=== PATIENT | female | born 1970 | race Caucasian/White ===

== ENCOUNTER 2016-07-18 23:09 | Emergency (ER) | payer SELFPAY ==
[~2016-07-18 23:09] MED LIST: ALLEGRA180 MG OR; AMOXICILLIN500 M1 OR; AMOXICILLIN500 MG OR; AMOXICILLIN500 MG PO; ASTELIN NASA137 MCG; AUGMENTIN500 MG OR; BACTRIM DS1 TAB OR; BENADRYL 50MG C50 MG OR; CEPHALEXIN500 M1 PO; CETIRIZINE10 MG PO; DIFLUCAN150 MG PO; FLEXERIL OR; FLUCONAZOLE150 MG PO; LORTAB5 PO; MEDDOSEPAK OR; MEDDOSEPAK PO; NAPROSYN500 MG PO; OMEPRAZOLE40 MG OR; PENICILLN VK500 MG PO; PEPCID40 MG OR; PRILOSEC20 MG PO; PROTONIX40 M2 PO; PYRIDIUM200 MG OR; ROBITUSSIN AC10 ML OR; SUDAFED30 MG OR; TESSALON PER100 MG PO; ULTRAM50 M1 PO; VENTOLIN HFA IN; VISTARIL25 MG PO; ZITHROMAX250 MG PO; ZYRTEC ALLGY10 M1 OR; [UNRECOGNIZED DRUG - OTHER] TOP
== END 2016-07-19 | disposition left against medical advice (07) | DRG 951 ==
LOC: ED 23:09 → LWOBS 07-19
DX: Z91.19 Patient's noncompliance with other medical treatment and regimen (principal)

== ENCOUNTER 2017-05-18 23:35 | Emergency (ER) | payer SELFPAY ==
[~2017-05-18] VITALS: Ht 167.6 cm; Wt 125.0 kg
[2017-05-19 01:24] LABS: INFLUENZA A NONE DETECTED (NONE DETECT); INFLUENZA B NONE DETECTED (NONE DETECT)
[2017-05-19] MEDS ORDERED: CLEOCIN300 MG PO (01:31)
[2017-05-19] MEDS ORDERED: CLARITIN10 M1 PO (01:31)
[2017-05-19 02:06] VITALS: BP 126/83
== END 2017-05-19 02:00 | disposition home or self-care (01) | DRG 153 ==
LOC: ED 23:35
PROVIDERS: Emergency Medicine
DX: J02.9 Acute pharyngitis, unspecified (principal); I88.9 Nonspecific lymphadenitis, unspecified; R09.89 Other specified symptoms and signs involving the circulatory and respiratory systems

== ENCOUNTER 2017-05-22 14:49 | Emergency (ER) | payer SELFPAY ==
[~2017-05-22] VITALS: Ht 167.6 cm; Wt 125.0 kg
[~2017-05-22 14:49] MED LIST changes: +CLARITIN10 M1 PO; +CLEOCIN300 MG PO
[2017-05-22 15:48] LABS: HEMATOCRIT 42.9 % (37.0-47.0); HEMOGLOBIN 14.4 g/dl (12.0-16.0); IMMATURE GRANULOCYTES 0.2 % (0.0-1.0); MEAN CELL VOLUME 85.5 fL CALC (80.0-100.0); MEAN CORPUSCULAR HGB 28.7 pG CALC (26.0-32.0); MEAN CORPUSCULAR HGB CONC 33.6 g/L CALC (32.0-36.0); NEUT# 5.53 thou/uL (2.00-7.15); RED BLOOD COUNT 5.02 mill/uL (4.20-5.60); RED CELL DISTRI WIDTH 11.9 % (11.5-15.5)
[2017-05-22 16:01] LABS: ALBUMIN 4.4 g/dL (3.2-5.0); ALKALINE PHOSPHATASE 86 u/l (38-126); ANION GAP 16 (6-22 (CALC)); BILIRUBIN, TOTAL 0.6 mg/dL (0.0-1.4); BUN 15 mg/dL (7-17); BUN/CREATININE RATIO 19 (12-20 (CALC)); CARBON DIOXIDE 26 mmol/l (22-30); CHLORIDE 105 mmol/l (95-108); CREATININE 0.8 mg/dL (0.5-1.0); GFR > 60 ML/MIN (>=60 (CALC)); GFR FOR AFR.AMER. > 60 ML/MIN (>=60 (CALC)); POTASSIUM 3.9 mmol/l (3.5-5.1); SGOT/AST 17 u/l (14-36); SGPT/ALT 28 u/l (9-52); SODIUM 143 mmol/l (137-146); TOTAL PROTEIN 7.4 g/dL (6.3-8.2)
[2017-05-22 16:30] LABS: BARBITURATES NEGATIVE (NEGATIVE); COCAINE NEGATIVE (NEGATIVE); METHADONE NEGATIVE (NEGATIVE); OXCYCODONE NEGATIVE (NEGATIVE); TETRAHYDROCANNABIONOL NEGATIVE (NEGATIVE); TRICYLIC ANTIDEPRESSANTS NEGATIVE (NEGATIVE)
[2017-05-22] MEDS ORDERED: PROVENTIL HFA IN (16:43)
[2017-05-22 17:01] VITALS: BP 113/63
== END 2017-05-22 17:03 | disposition home or self-care (01) | DRG 204 ==
LOC: ED 14:49
PROVIDERS: Emergency Medicine
DX: R06.00 Dyspnea, unspecified (principal); R11.10 Vomiting, unspecified; R61 Generalized hyperhidrosis

== ENCOUNTER 2018-02-17 14:47 | Emergency (ER) | payer OTHER ==
[~2018-02-17] VITALS: Ht 167.6 cm; Wt 287.0 kg
[~2018-02-17 14:47] MED LIST changes: +PROVENTIL HFA IN
[2018-02-17] MEDS ORDERED: CETIRIZINE10 MG PO (15:22)
[2018-02-17] MEDS ORDERED: EQL IBUPROFEN200 MG PO (15:23)
[2018-02-17 17:13] VITALS: BP 118/66
== END 2018-02-17 17:18 | disposition home or self-care (01) | DRG 761 ==
LOC: ED 14:47
DX: N95.1 Menopausal and female climacteric states (principal); M54.9 Dorsalgia, unspecified; J45.909 Unspecified asthma, uncomplicated; R73.03 Prediabetes

== ENCOUNTER 2018-06-02 17:30 | Emergency (ER) | payer BC ==
[~2018-06-02] VITALS: Ht 167.6 cm; Wt 100.0 kg
[~2018-06-02 17:30] MED LIST changes: +EQL IBUPROFEN200 MG PO
[2018-06-02] MEDS ORDERED: PROAIR HFA108 MCG/AC IN (17:48)
[2018-06-02] MEDS ORDERED: DUONEB IN (18:55)
[2018-06-02] MEDS ORDERED: DIFLUCAN100 M1 PO (18:55)
[2018-06-02] MEDS ORDERED: TESSALON PERLE100 MG PO (18:55)
[2018-06-02] MEDS ORDERED: PREDNISONE20 MG PO (18:55)
[2018-06-02] MEDS ORDERED: KEFLEX500 M1 PO (18:55)
[2018-06-02 19:01] VITALS: BP 141/84
== END 2018-06-02 19:01 | disposition home or self-care (01) | DRG 866 ==
LOC: ED 17:30
DX: B34.9 Viral infection, unspecified (principal); R50.9 Fever, unspecified; R05 Cough; J02.9 Acute pharyngitis, unspecified

== ENCOUNTER 2018-06-05 10:07 | Emergency (ER) | payer BC ==
[~2018-06-05] VITALS: Ht 165.1 cm; Wt 130.0 kg
[~2018-06-05 10:07] MED LIST changes: +DIFLUCAN100 M1 PO; +DUONEB IN; +KEFLEX500 M1 PO; +PREDNISONE20 MG PO; +PROAIR HFA108 MCG/AC IN; +TESSALON PERLE100 MG PO
[2018-06-05 11:45] VITALS: BP 130/81
== END 2018-06-05 11:50 | disposition home or self-care (01) | DRG 153 ==
LOC: ED 10:07
DX: J02.9 Acute pharyngitis, unspecified (principal); R05 Cough; J45.909 Unspecified asthma, uncomplicated; R73.03 Prediabetes

== ENCOUNTER 2018-06-08 18:27 | Emergency (ER) | payer BC ==
[~2018-06-08] VITALS: Ht 165.1 cm; Wt 131.0 kg
[2018-06-08 20:17] LABS: HEMATOCRIT 44.4 % (37.0-47.0); HEMOGLOBIN 14.7 g/dl (12.0-16.0); IMMATURE GRANULOCYTES 0.2 % (0.0-5.0); MEAN CELL VOLUME 84.6 fL CALC (80.0-100.0); MEAN CORPUSCULAR HGB CONC 33.1 g/L CALC (32.0-36.0); NEUT# 1.92 thou/uL (2.00-7.15); RED BLOOD COUNT 5.25 mill/uL (4.20-5.60); RED CELL DISTRI WIDTH 12.2 % (11.5-15.5)
[2018-06-08 20:23] LABS: URINE BILIRUBIN - DIPSTICK NEGATIVE (NEGATIVE); URINE BLOOD DIPSTICK LARGE (NEGATIVE); URINE COLOR YELLOW; URINE GLUCOSE - DIPSTICK NEGATIVE (NEGATIVE); URINE KETONE 15 mg/dL (NEGATIVE); URINE LEUK ESTERASE TRACE (NEGATIVE); URINE NITRITE - DIPSTICK NEGATIVE (Negative); URINE PROTEIN - DIPSTICK NEGATIVE (NEG-TRACE); URINE SPECIFIC GRAVITY 1.025; URINE UROBILINOGEN - DIPSTICK 0.2 E.U./dL (0.2)
[2018-06-08 20:30] LABS: ALBUMIN 3.9 g/dL (3.2-5.0); ALKALINE PHOSPHATASE 76 u/l (38-126); ANION GAP 12 (6-22 (CALC)); BILIRUBIN, TOTAL 0.6 mg/dL (0.0-1.4); BUN 13 mg/dL (7-17); BUN/CREATININE RATIO 17 (12-20 (CALC)); CARBON DIOXIDE 26 mmol/l (22-30); CHLORIDE 104 mmol/l (95-108); CREATININE 0.8 mg/dL (0.5-1.0); GFR > 60 ML/MIN (>=60 (CALC)); GFR FOR AFR.AMER. > 60 ML/MIN (>=60 (CALC)); SGOT/AST 18 u/l (14-36); SODIUM 139 mmol/l (137-146); TOTAL PROTEIN 6.6 g/dL (6.3-8.2)
[2018-06-08 20:34] LABS: URINE RBC 25-50 RBC/hpf (0-5); URINE SQUAMOUS EPITHELIAL CELL FEW EPI/hpf (0-FEW)
[2018-06-08] MEDS ORDERED: PYRIDIUM200 MG PO (21:05)
[2018-06-08] MEDS ORDERED: BACTRIM DS1 TAB PO (21:11)
[2018-06-08 21:13] VITALS: BP 142/67
== END 2018-06-08 21:25 | disposition home or self-care (01) | DRG 690 ==
LOC: ED 18:27
PROVIDERS: Emergency Medicine
DX: N39.0 Urinary tract infection, site not specified (principal); R30.0 Dysuria; R19.7 Diarrhea, unspecified

== ENCOUNTER 2018-06-29 08:13 | Emergency (ER) | payer BC ==
[~2018-06-29] VITALS: Ht 165.1 cm; Wt 91.0 kg
[~2018-06-29 08:13] MED LIST changes: +BACTRIM DS1 TAB PO; +PYRIDIUM200 MG PO
[2018-06-29 09:57] LABS: HEMATOCRIT 43.7 % (37.0-47.0); HEMOGLOBIN 14.2 g/dl (12.0-16.0); IMMATURE GRANULOCYTES 0.6 % (0.0-5.0); MEAN CELL VOLUME 85.5 fL CALC (80.0-100.0); MEAN CORPUSCULAR HGB 27.8 pG CALC (26.0-32.0); MEAN CORPUSCULAR HGB CONC 32.5 g/L CALC (32.0-36.0); NEUT# 4.92 thou/uL (2.00-7.15); RED BLOOD COUNT 5.11 mill/uL (4.20-5.60); RED CELL DISTRI WIDTH 12.3 % (11.5-15.5)
[2018-06-29 10:03] LABS: ALBUMIN 4.6 g/dL (3.2-5.0); ALKALINE PHOSPHATASE 108 u/l (38-126); ANION GAP 16 (6-22 (CALC)); BILIRUBIN, TOTAL 1.1 mg/dL (0.0-1.4); BUN 11 mg/dL (7-17); BUN/CREATININE RATIO 19 (12-20 (CALC)); CARBON DIOXIDE 25 mmol/l (22-30); CHLORIDE 104 mmol/l (95-108); CREATININE 0.6 mg/dL (0.5-1.0); GFR > 60 ML/MIN (>=60 (CALC)); GFR FOR AFR.AMER. > 60 ML/MIN (>=60 (CALC)); LIPASE 72 u/l (23-300); POTASSIUM 4.2 mmol/l (3.5-5.1); SGOT/AST 16 u/l (14-36); SODIUM 141 mmol/l (137-146); TOTAL PROTEIN 7.9 g/dL (6.3-8.2)
[2018-06-29 10:05] LABS: URINE BILIRUBIN - DIPSTICK NEGATIVE (NEGATIVE); URINE BLOOD DIPSTICK NEGATIVE (NEGATIVE); URINE COLOR YELLOW; URINE GLUCOSE - DIPSTICK NEGATIVE (NEGATIVE); URINE KETONE NEGATIVE (NEGATIVE); URINE NITRITE - DIPSTICK NEGATIVE (Negative); URINE PROTEIN - DIPSTICK NEGATIVE (NEG-TRACE); URINE SPECIFIC GRAVITY 1.015; URINE UROBILINOGEN - DIPSTICK 0.2 E.U./dL (0.2)
[2018-06-29 10:06] LABS: URINE LEUK ESTERASE SMALL (NEGATIVE)
[2018-06-29 10:08] LABS: URINE BACTERIA FEW hpf; URINE EPITHELIAL CELLS FEW EPI/hpf (0-FEW)
[2018-06-29] MEDS ORDERED: SUDAFED CONGEST30 MG PO (10:55)
[2018-06-29] MEDS ORDERED: RANITIDINE 150150 MG PO (10:56)
[2018-06-29 11:00] VITALS: BP 120/72
== END 2018-06-29 11:06 | disposition home or self-care (01) | DRG 392 ==
LOC: ED 08:13
PROVIDERS: Family Medicine
DX: K29.70 Gastritis, unspecified, without bleeding (principal); R09.82 Postnasal drip; J30.2 Other seasonal allergic rhinitis; R05 Cough; R06.02 Shortness of breath

== ENCOUNTER 2018-08-25 05:35 | Emergency (ER) | payer BC ==
[~2018-08-25] VITALS: Ht 165.1 cm; Wt 130.2 kg
[~2018-08-25 05:35] MED LIST changes: +RANITIDINE 150150 MG PO; +SUDAFED CONGEST30 MG PO
[2018-08-25] MEDS ORDERED: NAPROSYN500 MG PO (06:36)
[2018-08-25 06:49] VITALS: BP 110/65
== END 2018-08-25 06:47 | disposition home or self-care (01) | DRG 556 ==
LOC: ED 05:35
DX: M25.572 Pain in left ankle and joints of left foot (principal); M25.571 Pain in right ankle and joints of right foot

== ENCOUNTER 2019-02-28 08:41 | Emergency (ER) | payer SELFPAY ==
[~2019-02-28] VITALS: Ht 165.1 cm; Wt 127.0 kg
[2019-02-28 10:00] LABS: URINE BILIRUBIN - DIPSTICK NEGATIVE (NEGATIVE); URINE BLOOD DIPSTICK TRACE-LYSED (NEGATIVE); URINE COLOR YELLOW; URINE GLUCOSE - DIPSTICK NEGATIVE (NEGATIVE); URINE KETONE NEGATIVE (NEGATIVE); URINE LEUK ESTERASE NEGATIVE (NEGATIVE); URINE NITRITE - DIPSTICK NEGATIVE (Negative); URINE PROTEIN - DIPSTICK NEGATIVE (NEG-TRACE); URINE SPECIFIC GRAVITY <=1.005; URINE UROBILINOGEN - DIPSTICK 0.2 E.U./dL (0.2)
[2019-02-28] MEDS ORDERED: NAPROXEN500 MG PO (10:52)
[2019-02-28] MEDS ORDERED: FLEXERIL PO (10:52)
[2019-02-28 10:55] VITALS: BP 155/81
== END 2019-02-28 11:00 | disposition home or self-care (01) | DRG 563 ==
LOC: ED 08:41
PROVIDERS: Emergency Medicine
DX: S39.012A Strain of muscle, fascia and tendon of lower back, initial encounter (principal)

== ENCOUNTER 2019-09-14 04:38 | Emergency (ER) | payer SELFPAY ==
[~2019-09-14 04:38] MED LIST changes: +FLEXERIL PO; +NAPROXEN500 MG PO
[2019-09-14 06:55] LABS: HEMATOCRIT 44.1 % (37.0-47.0); HEMOGLOBIN 14.6 g/dl (12.0-16.0); IMMATURE GRANULOCYTES 0.5 % (0.0-5.0); MEAN CORPUSCULAR HGB 27.8 pG CALC (26.0-32.0); MEAN CORPUSCULAR HGB CONC 33.1 g/dL CAL (32.0-36.0); NEUT# 5.82 thou/uL (2.00-7.15); RED BLOOD COUNT 5.25 mill/uL (4.20-5.60); RED CELL DISTRI WIDTH 11.9 % (11.5-15.5)
[2019-09-14 07:03] LABS: ALBUMIN 4.4 g/dL (3.2-5.0); ALKALINE PHOSPHATASE 98 u/l (38-126); ANION GAP 15 (6-22 (CALC)); BUN 11 mg/dL (7-17); BUN/CREATININE RATIO 22 (12-20 (CALC)); CARBON DIOXIDE 24 mmol/l (22-30); CHLORIDE 104 mmol/l (95-108); CREATININE 0.5 mg/dL (0.5-1.0); GFR > 60 ML/MIN (>=60 (CALC)); GFR FOR AFR.AMER. > 60 ML/MIN (>=60 (CALC)); POTASSIUM 4.4 mmol/l (3.5-5.1); SODIUM 138 mmol/l (137-146); TOTAL PROTEIN 7.3 g/dL (6.3-8.2)
[2019-09-14 07:12] LABS: URINE BILIRUBIN - DIPSTICK NEGATIVE (NEGATIVE); URINE BLOOD DIPSTICK LARGE (NEGATIVE); URINE COLOR YELLOW; URINE GLUCOSE - DIPSTICK NEGATIVE (NEGATIVE); URINE KETONE NEGATIVE (NEGATIVE); URINE LEUK ESTERASE NEGATIVE (NEGATIVE); URINE PROTEIN - DIPSTICK NEGATIVE (NEG-TRACE); URINE UROBILINOGEN - DIPSTICK 0.2 E.U./dL (0.2)
[2019-09-14 07:14] LABS: URINE EPITHELIAL CELLS FEW EPI/hpf (0-FEW); URINE NITRITE - DIPSTICK NEGATIVE (Negative); URINE RBC >100 RBC/hpf (0-5)
[2019-09-14 07:15] LABS: URINE BACTERIA MODERATE hpf
[2019-09-14 07:26] LABS: SGOT/AST 30 u/l (14-36)
[2019-09-14 09:57] VITALS: BP 131/77
== END 2019-09-14 09:57 | disposition home or self-care (01) | DRG 761 ==
LOC: ED 05:35
DX: N92.0 Excessive and frequent menstruation with regular cycle (principal); Z97.5 Presence of (intrauterine) contraceptive device

== ENCOUNTER 2019-11-22 18:27 | Inpatient (IN) | payer BC ==
[~2019-11-22] VITALS: Ht 165.1 cm; Wt 131.0 kg
[2019-11-22 19:55] LABS: HEMATOCRIT 42.4 % (37.0-47.0); HEMOGLOBIN 13.9 g/dl (12.0-16.0); IMMATURE GRANULOCYTES 0.4 % (0.0-5.0); MEAN CELL VOLUME 83.8 fL CALC (80.0-100.0); MEAN CORPUSCULAR HGB 27.5 pG CALC (26.0-32.0); MEAN CORPUSCULAR HGB CONC 32.8 g/dL CAL (32.0-36.0); NEUT# 7.48 thou/uL (2.00-7.15); RED BLOOD COUNT 5.06 mill/uL (4.20-5.60); RED CELL DISTRI WIDTH 11.9 % (11.5-15.5)
[2019-11-22 20:00] LABS: URINE BILIRUBIN - DIPSTICK NEGATIVE (NEGATIVE); URINE BLOOD DIPSTICK NEGATIVE (NEGATIVE); URINE COLOR YELLOW; URINE GLUCOSE - DIPSTICK NEGATIVE (NEGATIVE); URINE KETONE NEGATIVE (NEGATIVE); URINE LEUK ESTERASE NEGATIVE (NEGATIVE); URINE NITRITE - DIPSTICK NEGATIVE (Negative); URINE PROTEIN - DIPSTICK NEGATIVE (NEG-TRACE); URINE SPECIFIC GRAVITY >=1.030; URINE UROBILINOGEN - DIPSTICK 0.2 E.U./dL (0.2)
[2019-11-22 20:16] LABS: ALBUMIN 4.3 g/dL (3.2-5.0); ALKALINE PHOSPHATASE 99 u/l (38-126); AMYLASE 58 u/l (30-110); ANION GAP 13 (6-22 (CALC)); BILIRUBIN, TOTAL 0.7 mg/dL (0.0-1.4); BUN 16 mg/dL (7-17); BUN/CREATININE RATIO 22 (12-20 (CALC)); CARBON DIOXIDE 25 mmol/l (22-30); CHLORIDE 101 mmol/l (95-108); CREATININE 0.7 mg/dL (0.5-1.0); GFR > 60 ML/MIN (>=60 (CALC)); GFR FOR AFR.AMER. > 60 ML/MIN (>=60 (CALC)); LIPASE 81 u/l (23-300); POTASSIUM 4.1 mmol/l (3.5-5.1); SGOT/AST 20 u/l (14-36); SODIUM 135 mmol/l (137-146); TOTAL PROTEIN 7.3 g/dL (6.3-8.2)
[2019-11-22 20:27] LABS: MYOGLOBIN 15 ng/mL (0 - 62)
[2019-11-22 23:34] VITALS: BP 82/55
[2019-11-23 03:48] VITALS: BP 106/74
[2019-11-23 06:54] VITALS: BP 106/67
[2019-11-23 15:00] VITALS: BP 111/68
[2019-11-23 16:03] VITALS: BP 136/92
[2019-11-23 18:51] VITALS: BP 131/85
[2019-11-24] VITALS (10 sets, daily range): BP systolic 103–128; BP diastolic 57–75
[2019-11-25 04:18] VITALS: BP 133/76
[2019-11-25 06:05] LABS: ANION GAP 10 (6-22 (CALC)); BUN 6 mg/dL (7-17); BUN/CREATININE RATIO 12 (12-20 (CALC)); CARBON DIOXIDE 22 mmol/l (22-30); CHLORIDE 104 mmol/l (95-108); CREATININE 0.5 mg/dL (0.5-1.0); GFR > 60 ML/MIN (>=60 (CALC)); GFR FOR AFR.AMER. > 60 ML/MIN (>=60 (CALC)); HEMATOCRIT 40.2 % (37.0-47.0); HEMOGLOBIN 12.7 g/dl (12.0-16.0); IMMATURE GRANULOCYTES 0.3 % (0.0-5.0); MEAN CELL VOLUME 86.1 fL CALC (80.0-100.0); MEAN CORPUSCULAR HGB 27.2 pG CALC (26.0-32.0); MEAN CORPUSCULAR HGB CONC 31.6 g/dL CAL (32.0-36.0); NEUT# 8.06 thou/uL (2.00-7.15); POTASSIUM 4.1 mmol/l (3.5-5.1); RED BLOOD COUNT 4.67 mill/uL (4.20-5.60); SODIUM 132 mmol/l (137-146)
[2019-11-25 07:10] VITALS: BP 120/77
[2019-11-25 12:00] VITALS: BP 124/81
[2019-11-25 16:00] VITALS: BP 128/73
[2019-11-25 19:00] VITALS: BP 125/74
[2019-11-26] VITALS (7 sets, daily range): BP systolic 120–149; BP diastolic 71–91
[2019-11-26 04:35] LABS: HEMATOCRIT 38.4 % (37.0-47.0); HEMOGLOBIN 12.2 g/dl (12.0-16.0); IMMATURE GRANULOCYTES 0.4 % (0.0-5.0); MEAN CELL VOLUME 86.3 fL CALC (80.0-100.0); MEAN CORPUSCULAR HGB 27.4 pG CALC (26.0-32.0); MEAN CORPUSCULAR HGB CONC 31.8 g/dL CAL (32.0-36.0); NEUT# 6.47 thou/uL (2.00-7.15); RED BLOOD COUNT 4.45 mill/uL (4.20-5.60); RED CELL DISTRI WIDTH 12.1 % (11.5-15.5)
[2019-11-26 04:48] LABS: ANION GAP 10 (6-22 (CALC)); BUN 7 mg/dL (7-17); BUN/CREATININE RATIO 15 (12-20 (CALC)); CARBON DIOXIDE 23 mmol/l (22-30); CHLORIDE 105 mmol/l (95-108); CREATININE 0.4 mg/dL (0.5-1.0); GFR > 60 ML/MIN (>=60 (CALC)); GFR FOR AFR.AMER. > 60 ML/MIN (>=60 (CALC)); POTASSIUM 3.8 mmol/l (3.5-5.1); SODIUM 135 mmol/l (137-146)
[2019-11-27 03:48] VITALS: BP 115/72
[2019-11-27 09:20] VITALS: BP 129/78
[2019-11-27 14:11] VITALS: BP 115/76; BP 116/80
[2019-11-27 17:01] VITALS: BP 108/76
[2019-11-27 18:48] VITALS: BP 131/81
[2019-11-27 23:25] VITALS: BP 123/80
[2019-11-28 04:00] VITALS: BP 125/74
[2019-11-28 05:22] LABS: HEMATOCRIT 34.2 % (37.0-47.0); IMMATURE GRANULOCYTES 0.6 % (0.0-5.0); MEAN CELL VOLUME 85.3 fL CALC (80.0-100.0); MEAN CORPUSCULAR HGB 27.4 pG CALC (26.0-32.0); MEAN CORPUSCULAR HGB CONC 32.2 g/dL CAL (32.0-36.0); NEUT# 5.93 thou/uL (2.00-7.15); RED BLOOD COUNT 4.01 mill/uL (4.20-5.60)
[2019-11-28 05:49] LABS: ANION GAP 11 (6-22 (CALC)); BUN 5 mg/dL (7-17); BUN/CREATININE RATIO 10 (12-20 (CALC)); CARBON DIOXIDE 27 mmol/l (22-30); CHLORIDE 100 mmol/l (95-108); CREATININE 0.5 mg/dL (0.5-1.0); GFR > 60 ML/MIN (>=60 (CALC)); GFR FOR AFR.AMER. > 60 ML/MIN (>=60 (CALC)); POTASSIUM 3.5 mmol/l (3.5-5.1); SODIUM 134 mmol/l (137-146)
[2019-11-28 07:20] VITALS: BP 128/51
[2019-11-28 10:30] VITALS: BP 113/72
[2019-11-28 15:00] VITALS: BP 136/82
[2019-11-28 18:42] VITALS: BP 132/82
[2019-11-28 23:30] VITALS: BP 122/75
[2019-11-29 03:55] VITALS: BP 127/82
[2019-11-29 08:00] VITALS: BP 129/75
[2019-11-29] MEDS ORDERED: PERCOCET 5/325M1 TAB PO (08:08)
== END 2019-11-29 09:37 | disposition home or self-care (01) | DRG 331 ==
LOC: ED 18:27 → ED-I 21:37 → ED 21:59 → MS2 22:00 → ED-I 22:00 → MS2 22:53
PROVIDERS: Emergency Medicine; ADMIT Surgery; ATTEND Surgery
PROC: 0DTF0ZZ Resection of Right Large Intestine, Open Approach (ICD-10-PCS; principal; 2019-11-24)
DX: K56.1 Intussusception (principal); D17.5 Benign lipomatous neoplasm of intra-abdominal organs; R00.0 Tachycardia, unspecified; T83.32XA Displacement of intrauterine contraceptive device, initial encounter; Y83.1 Surgical operation with implant of artificial internal device as the cause of abnormal reaction of the patient, or of later complication, without mention of misadventure at the time of the procedure; Z11.59 Encounter for screening for other viral diseases
CPT/HCPCS: J0131; J2710

== ENCOUNTER 2019-11-30 21:33 | Emergency (ER) | payer BC ==
[~2019-11-30] VITALS: Ht 165.1 cm; Wt 132.0 kg
[~2019-11-30 21:33] MED LIST changes: +PERCOCET 5/325M1 TAB PO
[2019-11-30 22:35] LABS: HEMATOCRIT 37.4 % (37.0-47.0); HEMOGLOBIN 11.9 g/dl (12.0-16.0); IMMATURE GRANULOCYTES 0.6 % (0.0-5.0); MEAN CELL VOLUME 85.2 fL CALC (80.0-100.0); MEAN CORPUSCULAR HGB 27.1 pG CALC (26.0-32.0); MEAN CORPUSCULAR HGB CONC 31.8 g/dL CAL (32.0-36.0); NEUT# 9.78 thou/uL (2.00-7.15); RED BLOOD COUNT 4.39 mill/uL (4.20-5.60); RED CELL DISTRI WIDTH 11.9 % (11.5-15.5)
[2019-11-30 22:52] LABS: ALBUMIN 3.6 g/dL (3.2-5.0); ALKALINE PHOSPHATASE 90 u/l (38-126); AMYLASE 49 u/l (30-110); ANION GAP 13 (6-22 (CALC)); BUN 8 mg/dL (7-17); BUN/CREATININE RATIO 13 (12-20 (CALC)); CARBON DIOXIDE 25 mmol/l (22-30); CHLORIDE 99 mmol/l (95-108); CREATININE 0.6 mg/dL (0.5-1.0); GFR > 60 ML/MIN (>=60 (CALC)); GFR FOR AFR.AMER. > 60 ML/MIN (>=60 (CALC)); LIPASE 40 u/l (23-300); POTASSIUM 3.1 mmol/l (3.5-5.1); SGOT/AST 15 u/l (14-36); SODIUM 134 mmol/l (137-146); TOTAL PROTEIN 6.9 g/dL (6.3-8.2)
[2019-11-30 22:54] LABS: BILIRUBIN, TOTAL 1.3 mg/dL (0.0-1.4)
[2019-11-30 23:34] LABS: URINE BILIRUBIN - DIPSTICK NEGATIVE (NEGATIVE); URINE BLOOD DIPSTICK NEGATIVE (NEGATIVE); URINE COLOR YELLOW; URINE GLUCOSE - DIPSTICK NEGATIVE (NEGATIVE); URINE KETONE >=80 mg/dL (NEGATIVE); URINE LEUK ESTERASE NEGATIVE (NEGATIVE); URINE NITRITE - DIPSTICK NEGATIVE (Negative); URINE PROTEIN - DIPSTICK NEGATIVE (NEG-TRACE); URINE UROBILINOGEN - DIPSTICK 0.2 E.U./dL (0.2)
[2019-12-01 02:36] VITALS: BP 118/78
[2019-12-01] MEDS ORDERED: ZYRTEC10 M3 PO (17:18)
== END 2019-12-01 02:30 | disposition home or self-care (01) | DRG 392 ==
LOC: ED 21:33
DX: R10.32 Left lower quadrant pain (principal); J45.909 Unspecified asthma, uncomplicated; R73.03 Prediabetes; K21.9 Gastro-esophageal reflux disease without esophagitis; K44.9 Diaphragmatic hernia without obstruction or gangrene; Z90.49 Acquired absence of other specified parts of digestive tract
CPT/HCPCS: J0131

== ENCOUNTER 2019-12-01 14:21 | Observation (INO) | payer BC ==
[~2019-12-01] VITALS: Ht 165.1 cm; Wt 129.3 kg
--- NOTE | 2019-12-01 14:37 | NUR ---
PT ARRIVED TO [facility] ROOM 268 IN STABLE CONDITION VIA WHEELCHAHIR ACCOMPAINED BY HOSPITAL STAFF. PT AMBULATED TO BED WITH STEADY GAIT. INTORDUCED SELF TO PT AND DISCUSS POC. ASSESSMENT COMPLETED AT THIS TIME. RESPIRATIONS ARE EVEN AND UNLABORED WITH NO SIGNS OF DISTRESS. LUNG SOUNDS ARE CLEAR. HEART RHYTHM IS NORMAL. RADIAL AND PEDAL PULSES ARE STRONG WITH NORMAL CAPILLARY REFILL. #22 IN RH STARTED BY ANGY, SITE RUNNING WITH LR @150 ORDERED, SITE APPEARS HEATHY AND PATENT. PT COMPLAINS OF 5/10 PAIN IN ABD, PT REFUSED MEDICTAION AT THIS TIME. PT REPORT COMING TO [facility] FROM DR MIDDLETON OFFICE DUE TO HAVING SCHEDULED ABD WOUND CLEANED OUT IN MORNING. DRESSING WAS SLIGHTLY SOILED UPON OBSERVATION, NO ORDERS AT THIS TIME. DRESSING REENFORCED. PT ORIENTED TO ROOM AND CALL SYSTEM. FALL RISK BAND AND ALLERGY BAND APPLIED. ALL SAFETY PRECAUTIONS ARE IN PLACE WITH CALL LIGHT IN REACH.
--- NOTE | 2019-12-01 14:38 | NUR ---
SPOKE WITH DR MIDDLETON RE: "AMOXICILLIN ALLERGY". PT REPORTS THE ALLERGY OCCURED WHEN SHE TOOK A ZPAK, AND THAT HER MOM IS ALLERGIC. HE EXPLAINED THIS DOESN'T MEAN SHE IS. WANTS TO INITIATE ZOSYN DESPITE REPORTED "ALLERGY"
[2019-12-01 14:47] VITALS: BP 105/72
--- NOTE | 2019-12-01 16:00 | NUR ---
PT RESTING IN SEMI FOWLERS POSITION WATCHING TV. RESPIRATIONS ARE EVEN AND UNLABORED WITH NO SIGNS OF DISTRESS. PT DENIES ANY PAIN. ENCOURAGED TO CALL FOR ASSISTANCE IF NEEDED. ALL SAFTEY PRECAUTIONS IN PLACE WIHT CALL LIGHT IN REACH. WILL CONTINUE TO MONTIOR
[2019-12-01] MEDS ORDERED: ZYRTEC10 M3 PO (17:18)
--- NOTE | 2019-12-01 18:39 | NUR ---
BIOFIRE SWAB OBTAIN AT THIS TIME. PT TOLERATED WELL
[2019-12-01 18:41] VITALS: BP 115/66
--- NOTE | 2019-12-01 19:18 | NUR ---
REPORT FROM MIKI MA. PT NOTED SITTING UP IN BED ON CELLPHONE. ALERT AND ORIENTED. NO APPARENT DISTRESS NOTED. PT C/O SOME DISCOMFORT FROM NASAL SWAB. IV FLUIDS INFUSING TO #22 RH WITHOUT DIFFICULTY. DISCUSSED POC AND NPO AFTER MIDNIGHT. PT VERBALIZED UNDERSTANDING. IS AT BEDSIDE. CALL LIGHT WITHIN REACH. WILL CONTINUE TO MONITOR.
[2019-12-01 19:35] VITALS: BP 109/68
--- NOTE | 2019-12-01 20:04 | NUR ---
PT RESTING IN BED. NO APPARENT DISTRESS NOTED. IVF INFUSING WITHOUT DIFFICULTY. ASSESSMENT COMPLETE. CALL LIGHT WITHIN REACH. WILL CONTINUE TO MONITOR.
[2019-12-02] VITALS (12 sets, daily range): BP systolic 102–120; BP diastolic 60–76
--- NOTE | 2019-12-02 00:16 | NUR ---
PT SITTING UP IN BED. IV ABT INFUSING WITHOUT S/S OF ADVERSE REACTION NOTED. PT DENIES ANY CURRENT WANTS OR NEEDS. ALL PO FLUIDS REMOVED AT THIS TIME, PT NOW NPO. CALL LIGHT WITHIN REACH. WILL CONTINUE TO MONITOR.
--- NOTE | 2019-12-02 04:03 | NUR ---
PT RESTING IN BED WITH EYES CLOSED. NO APPARENT DISTRESS NOTED. PT REMAINS NPO. CALL LIGHT WITHIN REACH. WILL CONTINUE TO MONITOR.
[2019-12-02 04:58] LABS: HEMATOCRIT 34.7 % (37.0-47.0); HEMOGLOBIN 10.9 g/dl (12.0-16.0); IMMATURE GRANULOCYTES 0.7 % (0.0-5.0); MEAN CELL VOLUME 86.3 fL CALC (80.0-100.0); MEAN CORPUSCULAR HGB 27.1 pG CALC (26.0-32.0); MEAN CORPUSCULAR HGB CONC 31.4 g/dL CAL (32.0-36.0); NEUT# 6.16 thou/uL (2.00-7.15); RED BLOOD COUNT 4.02 mill/uL (4.20-5.60); RED CELL DISTRI WIDTH 11.9 % (11.5-15.5)
--- NOTE | 2019-12-02 06:48 | NUR ---
PT LEFT WITH OR STAFF VIA BED IN STABLE CONDITION.
--- NOTE | 2019-12-02 09:50 | NUR ---
PT ARRIVED BACK TO [facility] ROOM 268 VIA STRETCHER IN STABLE CONDITION.PT HAD ABDOMINAL WOUND WASHOUT BY DR MIDDLETON. INTRODUCED SLEF TO PT AND DISCUSSED POC. ASSESSMENT AND VITALS COMPLETED AT THIS TIME. RESPRIATIONS ARE EVEN AND UNLABORED WITH NO SIGNS OF DISTRESS. LUNG SOUNDS ARE CLEAR. HEART RHYTHM IS NORMAL. BOWEL SOUNDS ARE ACTIVE, LAST REPORTED BM 12/01/19. RADIAL AND PEDAL PULSES ARE STRONG WITH NORMAL CAPILLARY REFILL. #22 IN RH RUNNING WITH NS AT 150AS ORDERED, SITE APPEARS HEALTHY AND PATENT. PT PRESENT WITH KAMILLE DRAIN, SMALL AMOUNT OF RED OUTPUT. DRESSING IS CDI AT THIS TIME. PT COMPLAINS OF SLIGHT TENDERNESS, REFUSES PAIN MEDICATION. ALL SAFETY PRECAUTIONS ARE IN PLACE WITH CALL LIGTH IN REACH. WILL COTNINUE TO MONITOR.
--- NOTE | 2019-12-02 12:50 | NUR ---
PT COMPLAINS OF 7/10 PAIN IN LEFT ABD, TORADOL ADMINISTERED. RESPIRATIONS ARE EVEN AND UNLABORED WITH NO SIGNS OF DISTRESS. PT DENIES ANY NEEDS AT THIS TIME. ALL SAFTEY PRECAUTIONS IN PLACE WITH CALL LIGTH IN REACH. WILL CONTINUE TO MONTIOR
--- NOTE | 2019-12-02 13:38 | NUR ---
REASSESSMENT OF PAIN RESILTING IN 05/24. RESPRIATIONS ARE EVEN AND UNLABROED WITH NO SIGNS OF DISTRESS. ALL SAFTEY PRECAUTIONS ARE IN PLACE WITH CALL LIGTH IN REACH. WILL CONTINUE TO MONTIOR
--- NOTE | 2019-12-02 17:00 | NUR ---
PT RESTING IN SMEI FOWLERS POSITION. RESPIRATIONS ARE EVEN AND UNLABORED WITH NO SIGNS OF DISTRESS. KAMILLE DRAIN EMPTIED OF 25ML OF BLOOD OUTPUT.SUCTION REAPPLIED. ABD DRESSING CDI. ALL SAFETY PRECAUTIONS ARE IN PLACE WITH CALL LIGHT IN REACH. WILL CONTINUE TO MONITOR
--- NOTE | 2019-12-02 19:07 | NUR ---
REPORT FROM MIKI MA. PT NOTED UP AMBULATING IN ROOM, ATTEMPTING TO GO TO BATHROOM. ALERT AND ORIENTED. NO APPARENT DISTRESS NOTED. KAMILLE DRAIN TO RLQ WITH SMALL AMOUNT OF BLOODY OUTPUT NOTED. DRESSING CDI. IV FLUIDS INFUSING TO #22 RH WITHOUT DIFFICULTY. DISCUSSED POC. PT VERBALIZED UNDERSTANDING. CALL LIGHT WITHIN REACH. WILL CONTINUE TO MONITOR.
[2019-12-03 03:44] VITALS: BP 108/69
[2019-12-03 08:01] VITALS: BP 114/64
[2019-12-03] MEDS ORDERED: TRAMADOL HCL50 MG PO (08:50)
[2019-12-03] MEDS ORDERED: AMOX/K CLAV875 M1 PO (08:52)
--- NOTE | 2019-12-03 09:31 | NUR ---
PT ASSESSMENT AND VITALS COMPLETE. PT IS ALERT AND ORIETED. CO OF MILD PAIN.NOT IN ANY DISTRESS. LUNGS ARE CLEAR ON ROOM AIR. NO SHORTNESS OF BREATH. AFEBRILE. IV IS HEALTHY; IV FLUIDS ARE FLOWING. KAMILLE DRAINED OF 25ML OF FLUID. DISCUSSED POC AND POSSIBLE DICHARGE. CALL ESTEVES WITH IN REACH. WILL CONTINUE TO OBSERVE.
[2019-12-03] MEDS ORDERED: DIFLUCAN100 MG PO (10:39)
[2019-12-03] MEDS ORDERED: BACTRIM DS1 TAB PO ×2 (10:39)
--- NOTE | 2019-12-03 11:57 | NUR ---
PT INSTRUCTED ON HOW TO EMPTY GAGANDEEP DRAIN. INSTRUCTED ON DISCHARGE MEDICATION. Discharge instructions given. Patient verbalizes understanding of same. Discharged in stable condition via Wheelchair to Home with staff. All belongings sent with pt.
== END 2019-12-03 10:49 | disposition home or self-care (01) | DRG 858 ==
LOC: MS2 14:21
PROVIDERS: ADMIT Surgery; ATTEND Surgery
PROC: 0J980ZZ Drainage of Abdomen Subcutaneous Tissue and Fascia, Open Approach (ICD-10-PCS; principal; 2019-12-02)
DX: T81.42XA Infection following a procedure, deep incisional surgical site, initial encounter (principal); Y83.6 Removal of other organ (partial) (total) as the cause of abnormal reaction of the patient, or of later complication, without mention of misadventure at the time of the procedure; Z90.49 Acquired absence of other specified parts of digestive tract
CPT/HCPCS: G0378; G0379; J0131

== ENCOUNTER 2019-12-04 20:20 | Inpatient (IN) | payer BC ==
[~2019-12-04] VITALS: Ht 165.1 cm; Wt 131.3 kg
[~2019-12-04 20:20] MED LIST changes: +AMOX/K CLAV875 M1 PO; +DIFLUCAN100 MG PO; +TRAMADOL HCL50 MG PO; +ZYRTEC10 M3 PO
--- NOTE | 2019-12-04 21:30 | NUR ---
PATIENT ARRIVED A DIRECT ADMIT FROM HOME VIA W/C ACCOMPANIED BY ER STAFF. PATIENT JUST RECENTLY DISCHARGED HOME S/P BOWEL RESECTION--AT HOME HAD STARTED TO BECOME CONCERNED ABOUT INCISION--UPON ASSESSMENT, PATIENT HAS A ABD INCISION MEASURING 10.2CM IN LENGTH WITH [address]--INCISION APPEARS WITHOUT INFECTION TO THE UPPER PART--ABOUT HALF WAY DOWN THE INCISION SHE IS NOTED TO HAVE A SMALL AMOUNT OF YELLOW/BROWN DRAINAGE--AREA CLEANSED WITH NS--DRY DRSG APPLIED--COVERED WITH ABD BINDER. ABDOMEN BELOW INCISION NOTED TO RED AND WARM TO TOUCH WELL. KAMILLE DRAIN PATENT TO RLQ OF ABDOMEN WITH 25ML OF BRIGHT RED BLOOD FLUID IN BULB--SITE UNREMARKABLE AROUND DRAIN. TENDERNESS NOTED TO ALL QUADS OF ABDOMEN WITH PALPATION. BS + IN ALL QUADS. PATIENT IS ALERT, VERBAL, ABLE TO MAKE NEEDS KNOWN. ABLE TO TOLERATE MEDS WELL WHOLE. CONT OF BOWEL AND BLADDER AND IS ABLE TO AMBULATE ABOUT ON OWN AD JUAN IN ROOM AND TO AND FROM BATHROOM WELL. DENIES ANY PAIN OR DISCOMFORT--LS CLEAR IN ALL LOBES. SKIN ASSESSMENT COMPLETED--NOTED TO HAVE BRUISING TO LEFT FOREARM AND RIGTH INNER AC AREA FROM OLD IV SITES AND BLOOD DRAWS. BOTTOM IS SLIGHTLY RED FROM SHE STATES "BEING FLAT ON MY BACK FOR TOO LONG AT HOME." ASIDE FROM THE ISSUES WITH ABDOMEN AND ABDOMINAL INCISION--NO OTHER AREAS OF CONCERN NOTED. 22 GAUGE PLACED IN RIGHT FOREARM--ORDERS TO RECEIVE D51/2 NS @ 100ML/HR TIMES 1000 ML. PATIENT IS TO REMAIN NPO FOR POSSIBLE SURGERY CONSULT TOMORROW. OTHERWISE REGUALR DIET IN PLACE. PATIENT ALSO TO RECEIVE IV ABT Q 6 HRS FOR PRE OP TO BEING AT MIDNIGHT. MULTIPLE DRUG ALLERGIES--NOTATED IN CHART WELL ON ALLERGY BAND PLACED ON PATIENT. FULL CODE. LAST BM TODAY--FORMED. WILL CONT TO MONITOR FOR ANY FURTHER CHANGES THROUGHOUT THE NIGHT.
[2019-12-04 22:39] VITALS: BP 118/76
--- NOTE | 2019-12-05 01:30 | NUR ---
PATIENT RESTING SOUNDLY IN BED WITH EYES CLOSED AT THIS TIME. RECEIVED FIRST DOSE OF IV ABT THERAPY RELATED TO POSS INCISION SITE INFECTION (CELLULITIS) WITH NO SIDE EFFECTS NOTED THUS FAR IN SHIFT--AFEBRILE. ADJUSTING WELL TO READMIT TO FACILITY. PIV SITE PATENT TO RFA--FLUSHES WELL--SITE WITHOUT ANY S/S OF INFECTION NOTED. D51/2 NS INFUSING WELL @ 100ML/HR--NO DRAINAGE NOTED FROM KAMILLE DRAIN AT THIS TIME. DENIES PAIN. REMAINS NPO ORDERED. WILL CONT TO MONITOR FOR ANY FURTHER CHANGES.
[2019-12-05 03:25] VITALS: BP 123/73
--- NOTE | 2019-12-05 05:24 | NUR ---
PATIENT SLEPT WELL ALL SHIFT--CONTINUES TO BE RESTING SOUNDLY IN BED WITH EYES CLOSED AT THIS TIME. HAS MAINTAINED NPO STATUS ORDERED. IV SITE PATENT TO YASIR FOREARM--NS INFUSING @ 100ML/HR--TOLERATING FLUIDS WELL. NO APPRENT DISTRESS NOTED. WILL CONT TO MONITOR FOR ANY FURTHER CHANGES.
[2019-12-05 05:26] LABS: HEMATOCRIT 31.3 % (37.0-47.0); HEMOGLOBIN 9.8 g/dl (12.0-16.0); IMMATURE GRANULOCYTES 0.5 % (0.0-5.0); MEAN CELL VOLUME 86.7 fL CALC (80.0-100.0); MEAN CORPUSCULAR HGB 27.1 pG CALC (26.0-32.0); MEAN CORPUSCULAR HGB CONC 31.3 g/dL CAL (32.0-36.0); NEUT# 5.25 thou/uL (2.00-7.15); RED BLOOD COUNT 3.61 mill/uL (4.20-5.60)
[2019-12-05 05:54] LABS: ALKALINE PHOSPHATASE 70 u/l (38-126); BUN 4 mg/dL (7-17); BUN/CREATININE RATIO 7 (12-20 (CALC)); CARBON DIOXIDE 28 mmol/l (22-30); CHLORIDE 101 mmol/l (95-108); CREATININE 0.6 mg/dL (0.5-1.0); GFR > 60 ML/MIN (>=60 (CALC)); GFR FOR AFR.AMER. > 60 ML/MIN (>=60 (CALC)); SGOT/AST 20 u/l (14-36); SODIUM 135 mmol/l (137-146)
--- NOTE | 2019-12-05 06:05 | NUR ---
IV ABT IS INFUSING AT THIS TIME--TOLERATING WELL THUS FAR--KAMILLE DRAIN EMPTIED FOR ANOTHER 25ML OF BRIGHT RED BLOOD IN BULB--CONTINUES TO DENY DISCOMFORT OF ANY KIND WELL. REMAINS NPO. WILL CONT TO MONITOR FOR ANY FURTHER CHANGES.
[2019-12-05 06:18] LABS: ANION GAP 10 (6-22 (CALC)); BILIRUBIN, TOTAL 0.5 mg/dL (0.0-1.4); POTASSIUM 3.8 mmol/l (3.5-5.1); TOTAL PROTEIN 5.1 g/dL (6.3-8.2)
[2019-12-05 06:19] LABS: ALBUMIN 2.6 g/dL (3.2-5.0)
--- NOTE | 2019-12-05 09:00 | NUR ---
RECEIVED REPORT FROM NATHANIEL AND PT IN BED WITH EYES OPEN. NO S/S OF DISTRESS. CONTINENT OF B/B AND TRANSFERS WITH ONE PERSON STANDBY ASSIST. INCISION TO MID ABDOMEN INTACT AND REDNESS NOTED TO LOWER ABDOMINAL AREA. PT IS NPO AND AWAITING MD SURGEON TO ASSESS ABDOMEN. KAMILLE DRAIN IN PLACE AND NOTED WITH RED COLORED DRAINAGE. ABDOMINAL BINDER IN PLACE. WILL CONTINUE TO OBSERVE
[2019-12-05 09:32] VITALS: BP 127/73
[2019-12-05 15:12] VITALS: BP 112/58
--- NOTE | 2019-12-05 16:24 | NUR ---
PT IN BED WITH EYES OPEN AND ABLE TO MAKE NEEDS KNOWN. CONSENT FOR I AND D COMPLETED DR. MIDDLETON IN AND SUPPLIES GATHERES AND I AND D OF SURGICAL WOUND COMPLETED AT BEDSIDE AND PT TOLERATED WELL PT HAS WET TO DRY DRESSING IN PLACE. PT CONINUES TO HAVE KAMILLE DRAIN IN PLACE AND NO COMPLINTS NOTED AND NO S/S OF INFECTION NOTED AROUND THE SITE. DRESSING IN PLACE TO ABDOMEN. CONTINENT OF B/B AND AMBULATES TO TOILET WITH NO ASSIST NEEDED. IV SITE CHANGED TOLEFT HAND WITH 1 ATTEMPT AND PT TOLERATED WELL. WILL CONTINUES TO OBSERVE
--- NOTE | 2019-12-05 19:25 | NUR ---
DRESSING CHANGE DONE TO ABDOMEN AND PT TOLERATED WELL. LARGE AMOUNT OF DRAINAGE NOTED AND RED GRANULATION TISSUE NOTED WITH NO ODOR. DRESSING REPLACED ORDERED
[2019-12-05 19:28] VITALS: BP 123/69
--- NOTE | 2019-12-05 20:00 | NUR ---
PATIENT ALERT, VEBRAL, ABLE TO MAKE NEEDS KNOWN. ABLE TO TOLERATE MEDS WELL WHOLE. CONT ON IV ABT THERAPY RELATED TO POSS ABD INCISION CELLULITS WITH NO SIDE EFFECTS NOTED--AFEBRILE. PIV SITE PATENT TO RIGTH FOREARM--FLUSHES WELL--SITE UNREMARKABLE. D51/2 NS INFUSING WITHOUT DIFFICULTY @ 100ML/HR. CONT OF BOWEL AND BLADDER. AMBULATES TO AND FROM BATHROOM INDEPENDENTLY. TOLERATING REGULAR DIET WELL. DRSG C/D/I TO ABDOMEN--SMALL AMOUNT OF DRAINAGE NOTED--NO ODOR NOTED. CX REMAINS PENDING AT THIS TIME. KAMILLE DRAIN PATENT TO RLQ OF ABDOMEN--SITE--UNREMARKABLE--SCANT AMOUNT OF DRAINGE NOTED IN BULB. NOTED TO HAVE SOME REDNESS TO HER BILATERAL BUTTOCKS--ENCOUARGED TO TURN FROM SIDE TO SIDE MUCH POSSIBLE TO ALLEVIATE THE PRESSURE ON HER BOTTOM. DID C/O PAIN 08/21 TO ABDOMEN--MEDICATED WITH PRN TYLENOL. WILL CONT TO MONITOR FOR ANY FURTHER CHANGES.
--- NOTE | 2019-12-06 | NUR ---
PATIENT AWAKE AND WATCHING TV AT THIS TIME--IV ABT THERAPY INFISED WITHOUT DIFFICULTY--REMAINS AFBERILE THUS FAR IN SHIFT. MEDICATED FOR PAIN WITH IV DILAUDID PRIOR TO DRSG CHANGE TO ABDOMEN--POSITIVE EFFECT--TOLERATED DRSG CHANGE WELL--REDNESS TO LOWER ABDOMINAL AREA IMPROVING BUT STILL VISIBLE. ABDOMINAL INCISION WITH EDGES APPROX IN UPPER INCISION--ANTONIA INTACT--WITHOUT ANY S/S OF INFECTION NOTED. WILL CONT TO MONITOR FOR FURTHER CHANGES.
--- NOTE | 2019-12-06 04:00 | NUR ---
PATIENT RESTED SOUNDLY IN BED ALL NIGHT WITH EYES CLOSED--DRSG TO ABDOMEN REMAINS C/D/I--NO DRAINAGE NOTED. DID C/O PAIN 5/10 TO ABD--DESCRIBED A BURNING PAIN--MEDICATED WITH PRN TYLENOL WITH POSITIVE EFFECT. PIV SITE PATENT TO LEFT HAND--SITE UNREMARKABLE--D51/2 NS INFUSING @ 100ML/HR WITHOUT DIFFICULTY. OFFERS NO FURTHER COMPLAINTS AT THIS TIME. WILL CONT TO MONITOR FOR FURTHER CHNAGES.
[2019-12-06 04:14] VITALS: BP 109/65
--- NOTE | 2019-12-06 07:40 | NUR ---
REPORT RECEIVED FROM FRANCESCA ARMSTRONG. PT RESTING IN BED SEMI FOWLES; ALERT AND ORIENTED. C/O ABDOMINAL TENDERNESS; ABDOMEN DISTENDED AND FIRM WITH MIDLINE INCISION WITH ANTONIA AND DRESSING TO DISTAL PORTION OF INCISION; DRESSING CDI; REDNESS TO LOWER ABDOMEN. LUNGS ARE CLEAR. 1+ PEDAL EDEMA AND PT REPORTS THAT THEY ARE TINGLING; IV FLUIDS PAUSED FOR NOW. PLAN OF CARE REVIEWED. PT ENCOURAGED TO VERBALIZE CONCERNS. STATES UNDERSTANDING. SAFETY MEASURES IN PLACE. CALL LIGHT WITHIN REACH.
[2019-12-06 07:45] VITALS: BP 114/67
--- NOTE | 2019-12-06 08:00 | NUR ---
ABDOMINAL DRESSING CHANGED; WET TO DRY PACKING WITH GAUZE AND TAPE. PT TOLEATED WELL WITH MODERATE PAIN DURING PACKING. AT BEDSIDE DURING DRESSING CHANGE. PT NOT MEDICATED PRIOR TO CHANGE PER REQUEST; REPORTS THAT SHE ISN'T SURE IF THE DILAUDID HELPS WITH HER INCISION PAIN.
--- NOTE | 2019-12-06 11:00 | NUR ---
PT USED CALL LIGHT TO HAVE NURSE CHECK ON KAMILLE DRAIN. PT WORRIED AND ASKING IF THE DRAINAGE COLOR CHANGE IS NORMAL. DRAINAGE NOW SEROSANGUINOUS; PT REASSURED THAT THIS IS NORMAL. 15 ML EMPTIED FROM DRAIN.
--- NOTE | 2019-12-06 15:15 | NUR ---
DR. MIDDLETON AT BEDSIDE TO CHANGE MOIST TO DRY PACKING ON ABDOMEN; PHOTOS OBTAINED AND PLACED IN CHART. REPACKED ABDOMINAL WOUND AND DRY DRESSING PLACED ON TOP. NEW ORDERS TO DC IV FLUIDS AND GIVE LASIX FOR INCREASED SWELLING TO ABDOMEN AND BLE.
[2019-12-06 15:28] VITALS: BP 121/80
--- NOTE | 2019-12-06 16:59 | NUR ---
LASIX GIVEN FOR INCREASED EDEMA. DIFLUCAN INFUSING AT THIS TIME.
--- NOTE | 2019-12-06 18:31 | NUR ---
ZOSYN INFUSING AT THIS TIME. UP TO BSC FREQUENTLY FOR CLEAR YELLOW VOIDS AFTER LASIX. DRESSING TO ABDOMEN CDI.
--- NOTE | 2019-12-06 18:44 | NUR ---
PT EXPERIENCING UGENCY WITH MILD STRESS INCONTINENCE AFTER LASIX; BSC PLACED NEAR BED. MESH UNDERWHERE WITH LINER PROVIDED.
--- NOTE | 2019-12-06 19:00 | NUR ---
RECEIVED REPORT FROM NURSE WINSTON PATIENT RESTING IN BED, SEMI FOWLERS POSITION, BREATHING EVEN UNLABORED CALL LIGHT AT REACH.
[2019-12-06 19:04] VITALS: BP 115/73
--- NOTE | 2019-12-06 21:00 | NUR ---
PATIENT ALERT ORIENTED ABLE TO MAKE NEEDS KNONW, WITH SALINE LOCK ON LEFT HAND PATENT FLUSHES WELL LBM 12/05, MIDLINE ANTONIA ON ABDOMEN, WITH SMALL OPEN AREA AT THE BOTTOM INCISION WITH PACKING AND DRESSING CDI, ALSO NOTED TO HAVE KAMILLE DRAIN WITH SEROSANGUINEOUS DRAINAGE EMPTIED 10CC, WILL CONTINUE TO MONITOR, CALL LIGHT AT REACH.
--- NOTE | 2019-12-06 21:07 | NUR ---
NOTIFIED DR MIDDLETON ABOUT PATIENT REQUEST FOR SLEEP AID, WITH ORDERS MADE.
--- NOTE | 2019-12-06 23:30 | NUR ---
ABDOMINAL DRESSING CHANGED AT THIS TIME, WET PACKING STRIP COVERED WITH CDD, PATEINT IN PAIN BUT REFUSED TO TAKE PAIN MEDICATION, PATIENT HELP REPOSITIONED CALL LIGHT AT REACH.
[2019-12-07 03:47] VITALS: BP 123/81
--- NOTE | 2019-12-07 04:50 | NUR ---
PATIENT REQUESTED TO CHANGE IV LINE ON LEFT HAND STATED THAT IT IS PAINFUL, IV SITE NO REDNESS NOTED, STARTED NEW SITE INSERTED ON RT HAND G22 PATENT FLUSHES WELL.
[2019-12-07 05:15] LABS: ANION GAP 11 (6-22 (CALC)); BUN 7 mg/dL (7-17); BUN/CREATININE RATIO 11 (12-20 (CALC)); CARBON DIOXIDE 27 mmol/l (22-30); CHLORIDE 102 mmol/l (95-108); CREATININE 0.6 mg/dL (0.5-1.0); GFR > 60 ML/MIN (>=60 (CALC)); GFR FOR AFR.AMER. > 60 ML/MIN (>=60 (CALC)); POTASSIUM 4.1 mmol/l (3.5-5.1); SODIUM 136 mmol/l (137-146)
[2019-12-07 07:35] VITALS: BP 116/71
--- NOTE | 2019-12-07 07:40 | NUR ---
REPORT RECEIVED FROM BRITTANY DOTSON. PT RESTING IN BED SEMI FOWLERS ON DONUT PILLOW TO OFFLOAD BUTTOCK; ALERT AND ORIENTED. C/O MILD DISCOMFORT TO KAMILLE INSERTION SITE AND INCISION DURING MOVEMENT. RESPIRATIONS EVEN AND UNLABORED ON ROOM AIR. MIDLINE INCISION APPEARS HEALTHY AND APPROXIMATED WITH ANTONIA; DRESSING TO DISTAL END OF INCISION WITH MINIMAL SEROUS DRAINAGE. PT STATES THAT SWELLING TO LOWER ABDOMEN AND ANKLES IS MUCH IMPROVED AFTER LASIX; MILD REDNESS REMAINS TO LOWER ABDOMEN. PLAN OF CARE REVIEWED. PT ENCOURAGED TO VERBALIZE CONCERNS. STATES UNDERSTANDING. SAFETY MEASURES IN PLACE. CALL LIGHT WITHIN REACH.
--- NOTE | 2019-12-07 07:47 | NUR ---
DRESSING CHANGED; PT TEARFUL WITH PAIN DURING PACKING OF WOUND; CONTINUES TO DECLINE PAIN MEDICATION PRIOR TO DRESSING CHANGE. DR. MIDDLETON ON UNIT; AWARE OF IMPROVEMENT AND PT CONDITION. NO NEW ORDERS AT THIS TIME.
--- NOTE | 2019-12-07 12:30 | NUR ---
DR. MIDDLETON AT BEDSIDE FOR EVAL; NEW ORDER FOR CT OF ABDOMEN/PELVIS WITH IV CONTRAST. AT BEDSIDE. ZOSYN INFUSING AT THIS TIME; IV SITE TO RIGHT HAND APPEARS HEALTHY AND FLUSHES.
--- NOTE | 2019-12-07 13:05 | NUR ---
OFF UNIT VIA WHEELCHAIR WITH [facility] STAFF TO RADIOLOGY FOR CT OF ABDOMEN/PELVIS IN STABLE CONDITION. ABDOMINAL BINDER IN PLACE.
--- NOTE | 2019-12-07 13:50 | NUR ---
BACK TO ROOM VIA WHEELCHAIR; NOW SITTING UP IN BED. NEW IV STARTED IN RADIOLOGY TO LEFT WRIST. TYLENOL GIVEN FOR ABDOMINAL DISCOMFORT AFTER CT.
[2019-12-07 15:11] VITALS: BP 111/66
--- NOTE | 2019-12-07 16:30 | NUR ---
ABDOMINAL PACKING CHANGED; PT TOLERATED BETTER THAN BEFORE, BUT STILL VERY PAINFUL. 25 ML OF SEROSANGUINOUS DRAINAGE EMPTIED FROM KAIMLLE DRAIN.
[2019-12-07 18:46] VITALS: BP 115/73
--- NOTE | 2019-12-07 18:59 | NUR ---
DIFLUCAN AND ZOSYN COMPLETE. IV SITES APPEAR HEALTHY AND FLUSH X 2. PT AMBULATING IN HALLWAY.
--- NOTE | 2019-12-07 20:59 | NUR ---
PT AMBULATING IN ROOM, NO SIGNS OF DISTRESS NOTED, RESP EVEN AND UNLABORED. DISCUSSED POC, PT VERBALIZED UNDERSTANDING. DRESSING TO ABD CDI, KAMILLE DRAIN TO RLQ INTACT. ASSESSMENT COMPLETED, CALL LIGHT IN REACH,CONTINUE TO MONITOR.
--- NOTE | 2019-12-08 00:13 | NUR ---
PT RESTING IN BED, NO SIGNS OF DISTRESS NOTED, RESP EVEN AND UNLABORED. DISCUSSED DRESSING CHANGE, PT VERBALIZED UNDERSTANDING. DRESSING TO ABD WET/DRY COMPLETED, PT TOLERATED WELL. CALL LIGHT IN REACH,CONTINUE TO MONITOR.
[2019-12-08 03:38] VITALS: BP 114/68
--- NOTE | 2019-12-08 06:00 | NUR ---
PT RESTING IN BED, NO SIGNS OF DISTRESS NOTED, RESP EVEN AND UNLABORED. IV ANTIBIOTIC INFUSION COMPLETED, CALL LIGHT IN REACH,CONTINUE TO MONITOR.
--- NOTE | 2019-12-08 07:30 | NUR ---
REPORT RECEIVED FROM FRANCESCA GROVE. PT SITTING UP IN BED EATING BREAKFAST; ALERT AND ORIENTED. DENIES PAIN CURRENTLY. RESPIRATIONS EVEN AND UNLABORED ON ROOM AIR. VSS. PLAN OF CARE REVIEWED. PT ENCOURAGED TO VERBALIZE CONCERNS. PT STATES SHE WILL NOT BE ABLE TO DO HER OWN DRESSING CHANGES AT HOME AND HER SAYS HE IN UNABLE WELL. WILL DISCUSS WITH CASE MANAGEMENT. SAFETY MEASURES IN PLACE. CALL LIGHT WITHIN REACH.
[2019-12-08 08:26] VITALS: BP 116/67
--- NOTE | 2019-12-08 08:30 | NUR ---
TOLERATED DRESSING CHANGE WELL.
--- NOTE | 2019-12-08 12:01 | NUR ---
NEW AUGMENTIN ABT GIVEN WITH LUNCH; MED EXPLAINED. WILL MONITOR FOR S/S ABT.
--- NOTE | 2019-12-08 13:00 | NUR ---
IV SITE TO ESTHELA JOHNSON'Magdy PER PT REQUEST; SLIGHT REDNESS NOTED ABOVE SITE. PT REPORTS THAT SHE STARTED HER MENSTRUAL CYCLE.
[2019-12-08 13:25] LABS: HEMOGLOBIN 11.7 g/dl (12.0-16.0); MEAN CORPUSCULAR HGB 26.8 pG CALC (26.0-32.0); MEAN CORPUSCULAR HGB CONC 31.2 g/dL CAL (32.0-36.0); RED BLOOD COUNT 4.36 mill/uL (4.20-5.60)
[2019-12-08 13:32] LABS: HEMATOCRIT 37.5 % (37.0-47.0)
--- NOTE | 2019-12-08 13:42 | NUR ---
AMBUALTING IN HALLWAY. INCISION COVERED WITH ABD PAD FOR COMFORT WHEN AMBULATING AND ABDOMINAL BINDER IN PLACE. NO REPORTED SYMPTOMS SO FAR AFTER TAKING NEW ANTIBIOTIC. CALL LIGHT WITHIN REACH.
[2019-12-08 15:21] VITALS: BP 117/76
--- NOTE | 2019-12-08 17:00 | NUR ---
15 ML EMPTIED FROM KAMILLE DRAIN; DRESSING CHANGED. PT REQUESTING TYLENOL.
--- NOTE | 2019-12-08 19:05 | NUR ---
REPORT RECEIVED FROM BRITTANY MONTERO. PT RESTING IN BED, NO S/S OF DISTRESS AT THIS TIME. WILL CONTINUE TO MONITOR.
[2019-12-08 19:28] VITALS: BP 117/63
--- NOTE | 2019-12-09 00:15 | NUR ---
PT RESTING IN BED, ALERT AND ORIENTED. PT PROVIDED WITH A SNACK. ABDOMINAL DRESSING CHANGED AT THIS TIME, PER ORDERS, PT TOLERATED WELL. SAFETY PRECAUTIONS IN PLACE. WILL CONTINUE TO MONITOR.
--- NOTE | 2019-12-09 04:06 | NUR ---
PT RESTING IN BED, NO S/S OF DISTRESS AT THIS TIME. SAFETY PRECAUTIONS IN PLACE. WILL CONTINUE TO MONITOR.
[2019-12-09 04:57] VITALS: BP 117/75
[2019-12-09 07:56] VITALS: BP 133/69
--- NOTE | 2019-12-09 08:00 | NUR ---
REPORT RECEIVED FROM BRITTANY BLOOD. PT SITTING UP ON EDGE OF BED EATING BREAKFAST; ALERT AND ORIENTED. DENIES PAIN; HAS DISCOMFORT AT INCISION AND DRAIN SITE. RESPIRATIONS EVEN AND UNLABORED ON ROOM AIR; LUNGS CLEAR. VSS. ABDOMINAL BINDER IN PLACE. NEW ORDER TO REMOVE KAMILLE DRAIN; DISCUSSED WITH PT; EAGER TO HAVE DRAIN REMOVED. PLAN OF CARE REVIEWED. PT ENCOURAGED TO VERBALIZE CONCERNS. STATES UNDERSTANDING. SAFETY MEASURES IN PLACE. CALL LIGHT WITHIN REACH.
--- NOTE | 2019-12-09 08:39 | NUR ---
GAGANDEEP DRAIN REMOVED; PT TOLERATED VERY WELL; 20 ML OF SANGUINOUS DRAINGE EMPTIED PRIOR TO DC. ABDOMINAL DRESSING REMOVED FOR SHOWER. PT ANXIOUS WITH SEVERAL QUESTIONS ABOUT WHAT IS NORMAL AND EXPECTED AFTER SURGERY. EXPLANATIONS AND VERBAL CUES EFFECTIVE FOR ANXIETY.
--- NOTE | 2019-12-09 09:25 | NUR ---
BACK IN BED AFTER SHOWER; ABDOMINAL WOUND PACKED WITH GAUZE. DRAIN REMOVAL SITE WITH SEROUS DRAINAGE; DRY DRESSING REPLACED. TYLENOL GIVEN FOR DISCOMFORT AFTER ACTIVITY.
--- NOTE | 2019-12-09 09:31 | NUR ---
DR. MIDDLETON AT BEDSIDE TO DISCUSS PLANS FOR DISCHARGE.
[2019-12-09] MEDS ORDERED: AMOX/K CLAV875 M1 PO (09:32)
--- NOTE | 2019-12-09 09:46 | NUR ---
DR. MIDDLETON'S OFFICE CALLED; PT SCHEDULED FOR FOLLOW UP APPOINTMENT 12/17/19 AT 1215. PT NOTIFIED.
--- NOTE | 2019-12-09 10:45 | NUR ---
IV site discontinued, cath intact. No edema , no redness, voices no discomfort.
--- NOTE | 2019-12-09 11:11 | NUR ---
Discharge instructions given. Patient verbalizes understanding of same. Discharged in stable condition via Wheelchair to Home with family. All belongings sent with pt.
== END 2019-12-09 11:10 | disposition home health service (06) | DRG 863 ==
LOC: MS2 20:20
PROVIDERS: ADMIT Surgery; ATTEND Surgery
PROC: 0H97XZZ Drainage of Abdomen Skin, External Approach (ICD-10-PCS; principal; 2019-12-05)
DX: T81.41XA Infection following a procedure, superficial incisional surgical site, initial encounter (principal); L03.311 Cellulitis of abdominal wall; Y83.6 Removal of other organ (partial) (total) as the cause of abnormal reaction of the patient, or of later complication, without mention of misadventure at the time of the procedure; Z90.49 Acquired absence of other specified parts of digestive tract; Z88.1 Allergy status to other antibiotic agents; Z11.59 Encounter for screening for other viral diseases
CPT/HCPCS: J1650; Q9967

== ENCOUNTER 2020-02-28 02:52 | Observation (INO) | payer BC ==
[~2020-02-28] VITALS: Ht 165.1 cm; Wt 129.0 kg
--- NOTE | 2020-02-28 02:55 | NUR ---
A/O F WITH UEPIGASTRIC PAIN NAUSEA ONSET 10 DAYS PRIOR,DIARRHEA.S/P BOWEL RESECTTION 3 MONTHS AGO FOR INTUSSECPTION.TAKES NO NARCOTIC PAIN MEDS.
[2020-02-28] MEDS ORDERED: ALLERGY1 TAB PO (03:16)
--- NOTE | 2020-02-28 03:45 | NUR ---
PT REFUSED PAIN MED ONLY
[2020-02-28 03:52] LABS: IMMATURE GRANULOCYTES 0.2 % (0.0-5.0); MEAN CELL VOLUME 84.3 fL CALC (80.0-100.0); MEAN CORPUSCULAR HGB CONC 30.9 g/dL CAL (32.0-36.0); NEUT# 4.76 thou/uL (2.00-7.15); RED BLOOD COUNT 5.61 mill/uL (4.20-5.60); RED CELL DISTRI WIDTH 12.3 % (11.5-15.5)
[2020-02-28 03:58] LABS: URINE BILIRUBIN - DIPSTICK NEGATIVE (NEGATIVE); URINE BLOOD DIPSTICK NEGATIVE (NEGATIVE); URINE COLOR YELLOW; URINE GLUCOSE - DIPSTICK NEGATIVE (NEGATIVE); URINE KETONE NEGATIVE (NEGATIVE); URINE LEUK ESTERASE NEGATIVE (NEGATIVE); URINE NITRITE - DIPSTICK NEGATIVE (Negative); URINE PH 6.5 (4.5-8.0); URINE PROTEIN - DIPSTICK NEGATIVE (NEG-TRACE); URINE UROBILINOGEN - DIPSTICK 0.2 E.U./dL (0.2)
[2020-02-28 03:59] LABS: HEMATOCRIT 47.3 % (37.0-47.0); HEMOGLOBIN 14.6 g/dl (12.0-16.0)
[2020-02-28 04:03] LABS: AMYLASE 62 u/l (30-110); ANION GAP 13 (6-22 (CALC)); BUN 13 mg/dL (7-17); BUN/CREATININE RATIO 22 (12-20 (CALC)); CARBON DIOXIDE 25 mmol/l (22-30); CHLORIDE 106 mmol/l (95-108); CREATININE 0.6 mg/dL (0.5-1.0); GFR > 60 ML/MIN (>=60 (CALC)); GFR FOR AFR.AMER. > 60 ML/MIN (>=60 (CALC)); POTASSIUM 4.3 mmol/l (3.5-5.1); SGOT/AST 25 u/l (14-36); SODIUM 139 mmol/l (137-146)
[2020-02-28 04:12] LABS: ALBUMIN 4.3 g/dL (3.2-5.0); ALKALINE PHOSPHATASE 108 u/l (38-126); TOTAL PROTEIN 7.8 g/dL (6.3-8.2)
[2020-02-28 04:14] LABS: MYOGLOBIN 19 ng/mL (0 - 62)
--- NOTE | 2020-02-28 04:30 | NUR ---
PT IS W/P/D SKIN NSR NO ST T CHANGES TO CT
--- NOTE | 2020-02-28 05:35 | NUR ---
SR NO ECTOPY NO ST OR T CHANGES STILL HAVING EPIGASTRIC DISCOMFORT BUT NO N/V NO SWEATS NO DYSPNES
--- NOTE | 2020-02-28 06:06 | NUR ---
PT VERY APPREHENSIVE ABOUT TAKING NARCOTIC PAIN MED BUT DOES CONSENT THIS TIME. SR NO ECTOPY NO ST T CHANGES
--- NOTE | 2020-02-28 06:09 | NUR ---
PT TELLS ME SHE ALSO HAS HX HIATAL HERNIA
--- NOTE | 2020-02-28 06:59 | NUR ---
PT REPORT TO NURSE CANDIDO
--- NOTE | 2020-02-28 07:00 | NUR ---
REPORT RECEIVED FROM BRITTANY PRICE.
[2020-02-28 07:30] VITALS: BP 121/84
--- NOTE | 2020-02-28 07:30 | NUR ---
PT ADMITTED BUT REMAINS IN ER HOLD, ADMISSION COMPLETED SEE ER NOTES
--- NOTE | 2020-02-28 07:45 | NUR ---
PT C/O HEADACHE SINCE HAVING THE NITRO PASTE ON. WILL CONSULT WITH ADMITTING PHYSICIAN FOR FURTHER ORDERS. VITALS STABLE. BED IN LOW POSITION. CALL LIGHT WITHIN REACH.
--- NOTE | 2020-02-28 09:11 | NUR ---
PT RESTING. NO COMPLAINTS AT THIS TIME.
--- NOTE | 2020-02-28 10:17 | NUR ---
PT RESTING. REPORTS HEADACHE SOME IMPROVED WITH REMOVAL OF NITRO PASTE. WILL CONTINUE TO MONITOR.
--- NOTE | 2020-02-28 11:08 | NUR ---
VITALS REMAIN STABLE. CALL LIGHT WITHIN REACH. NO CHANGES.
--- NOTE | 2020-02-28 12:05 | NUR ---
PT STABLE. NO COMPLAINTS.
--- NOTE | 2020-02-28 12:40 | NUR ---
DR. BO AT BEDSIDE, WILL DISCHARGE PT.
[2020-02-28] MEDS ORDERED: PROTONIX40 MG PO (12:52)
--- NOTE | 2020-02-28 13:01 | NUR ---
REPORT GIVEN TO LOLITA
--- NOTE | 2020-02-28 13:35 | NUR ---
Discharge instructions given. Patient verbalizes understanding of same. Discharged in stable condition via Ambulatory to Home with family. All belongings sent with pt.
[2020-02-28 13:39] VITALS: BP 109/56
== END 2020-02-28 13:35 | disposition home or self-care (01) | DRG 392 ==
LOC: ED 02:52 → ED-I 03:15 → ED 06:49 → ED-I 06:50 → ED 07:25 → ED-I 07:25
PROVIDERS: Emergency Medicine; ADMIT Internal Medicine; ATTEND Internal Medicine
DX: K21.9 Gastro-esophageal reflux disease without esophagitis (principal); Z68.42 Body mass index [BMI] 45.0-49.9, adult; J45.909 Unspecified asthma, uncomplicated; E66.01 Morbid (severe) obesity due to excess calories; K44.9 Diaphragmatic hernia without obstruction or gangrene; Z90.49 Acquired absence of other specified parts of digestive tract; Z20.828 Contact with and (suspected) exposure to other viral communicable diseases
CPT/HCPCS: Q9967; S0164

== ENCOUNTER 2020-03-30 06:48 | Day surgery (SDC) | payer BC ==
[~2020-03-30] VITALS: Ht 165.1 cm; Wt 128.8 kg
[~2020-03-30 06:48] MED LIST changes: +ALBUTEROL108 MCG/AC IN; +ALLERGY1 TAB PO; +PROTONIX40 MG PO; +ZYRTEC10 MG PO; +[UNRECOGNIZED DRUG - OTHER] PO
[2020-03-30 09:31] VITALS: BP 122/73
== END 2020-03-30 09:25 | disposition home or self-care (01) | DRG 392 ==
LOC: ENDO 06:48 → ORM 08:35 → ENDO 08:35 → ORM 08:45 → ENDO 08:45
PROVIDERS: ATTEND Surgery
PROC: 0DJ08ZZ Inspection of Upper Intestinal Tract, Via Natural or Artificial Opening Endoscopic (ICD-10-PCS; principal; 2020-03-30)
PROC: 0DJD8ZZ Inspection of Lower Intestinal Tract, Via Natural or Artificial Opening Endoscopic (ICD-10-PCS; 2020-03-30)
DX: R10.13 Epigastric pain (principal); K31.89 Other diseases of stomach and duodenum; R19.7 Diarrhea, unspecified; K64.8 Other hemorrhoids; Z90.49 Acquired absence of other specified parts of digestive tract; Z20.828 Contact with and (suspected) exposure to other viral communicable diseases

== ENCOUNTER 2020-04-01 01:39 | Emergency (ER) | payer BC ==
[~2020-04-01] VITALS: Ht 165.1 cm; Wt 127.7 kg
[2020-04-01 03:06] LABS: HEMATOCRIT 43.5 % (37.0-47.0); HEMOGLOBIN 14.2 g/dl (12.0-16.0); IMMATURE GRANULOCYTES 0.3 % (0.0-5.0); MEAN CELL VOLUME 81.5 fL CALC (80.0-100.0); MEAN CORPUSCULAR HGB 26.6 pG CALC (26.0-32.0); MEAN CORPUSCULAR HGB CONC 32.6 g/dL CAL (32.0-36.0); NEUT# 4.39 thou/uL (2.00-7.15); RED BLOOD COUNT 5.34 mill/uL (4.20-5.60); RED CELL DISTRI WIDTH 12.5 % (11.5-15.5)
[2020-04-01 04:49] VITALS: BP 130/63
== END 2020-04-01 04:51 | disposition home or self-care (01) | DRG 866 ==
LOC: ED 01:39
PROVIDERS: Family Medicine
DX: B34.9 Viral infection, unspecified (principal); J45.909 Unspecified asthma, uncomplicated; Z20.828 Contact with and (suspected) exposure to other viral communicable diseases

== ENCOUNTER 2020-09-18 09:46 | Day surgery (SDC) | payer BC ==
[~2020-09-18] VITALS: Ht 166.4 cm; Wt 133.4 kg
[2020-09-18 13:43] VITALS: BP 105/55
== END 2020-09-18 14:15 | disposition home or self-care (01) | DRG 745 ==
LOC: ORM 09:46
PROVIDERS: ATTEND Obstetrics & Gynecology
PROC: 0UPD8HZ Removal of Contraceptive Device from Uterus and Cervix, Via Natural or Artificial Opening Endoscopic (ICD-10-PCS; principal; 2020-09-18)
PROC: 0UDB8ZX Extraction of Endometrium, Via Natural or Artificial Opening Endoscopic, Diagnostic (ICD-10-PCS; 2020-09-18)
DX: T83.32XA Displacement of intrauterine contraceptive device, initial encounter (principal); J45.909 Unspecified asthma, uncomplicated; Y83.1 Surgical operation with implant of artificial internal device as the cause of abnormal reaction of the patient, or of later complication, without mention of misadventure at the time of the procedure
CPT/HCPCS: J2710

== ENCOUNTER 2021-04-16 03:06 | Emergency (ER) | payer BC ==
[~2021-04-16] VITALS: Ht 166.4 cm; Wt 127.0 kg
[2021-04-16 05:09] LABS: HEMATOCRIT 43.6 % (37.0-47.0); HEMOGLOBIN 14.4 g/dl (12.0-16.0); IMMATURE GRANULOCYTES 0.9 % (0.0-5.0); MEAN CELL VOLUME 86.2 fL CALC (80.0-100.0); MEAN CORPUSCULAR HGB 28.5 pG CALC (26.0-32.0); NEUT# 3.72 thou/uL (2.00-7.15); RED BLOOD COUNT 5.06 mill/uL (4.20-5.60); RED CELL DISTRI WIDTH 11.9 % (11.5-15.5)
[2021-04-16 05:26] LABS: ALBUMIN 3.6 g/dL (3.2-5.0); ALKALINE PHOSPHATASE 106 u/l (38-126); ANION GAP 10 (6-22 (CALC)); BILIRUBIN, TOTAL 0.8 mg/dL (0.0-1.4); BUN 10 mg/dL (7-17); BUN/CREATININE RATIO 21 (12-20 (CALC)); CARBON DIOXIDE 25 mmol/l (22-30); CHLORIDE 104 mmol/l (95-108); CREATININE 0.5 mg/dL (0.5-1.0); GFR > 60 ML/MIN (>=60 (CALC)); GFR FOR AFR.AMER. > 60 ML/MIN (>=60 (CALC)); POTASSIUM 4.2 mmol/l (3.5-5.1); SODIUM 134 mmol/l (137-146); TOTAL PROTEIN 6.7 g/dL (6.3-8.2)
[2021-04-16 05:32] LABS: SGOT/AST 57 u/l (14-36)
[2021-04-16] MEDS ORDERED: VOLTAREN75 MG PO (06:27)
[2021-04-16 06:32] VITALS: BP 128/81
== END 2021-04-16 06:42 | disposition home or self-care (01) | DRG 179 ==
LOC: ED 03:06
PROVIDERS: Family Medicine
DX: U07.1 COVID-19 (principal); M54.12 Radiculopathy, cervical region; J45.909 Unspecified asthma, uncomplicated; R06.02 Shortness of breath; F06.4 Anxiety disorder due to known physiological condition
CPT/HCPCS: Q9967

== ENCOUNTER 2021-04-16 18:03 | Emergency (ER) | payer BC ==
[~2021-04-16] VITALS: Ht 165.1 cm; Wt 100.0 kg
[~2021-04-16 18:03] MED LIST changes: +VOLTAREN75 MG PO
[2021-04-16 20:42] LABS: HEMATOCRIT 43.7 % (37.0-47.0); HEMOGLOBIN 14.7 g/dl (12.0-16.0); IMMATURE GRANULOCYTES 0.4 % (0.0-5.0); MEAN CELL VOLUME 84.9 fL CALC (80.0-100.0); MEAN CORPUSCULAR HGB 28.5 pG CALC (26.0-32.0); MEAN CORPUSCULAR HGB CONC 33.6 g/dL CAL (32.0-36.0); NEUT# 5.41 thou/uL (2.00-7.15); RED BLOOD COUNT 5.15 mill/uL (4.20-5.60); RED CELL DISTRI WIDTH 11.8 % (11.5-15.5)
[2021-04-16 21:01] LABS: ALBUMIN 4.1 g/dL (3.2-5.0); ALKALINE PHOSPHATASE 116 u/l (38-126); ANION GAP 14 (6-22 (CALC)); BILIRUBIN, TOTAL 0.8 mg/dL (0.0-1.4); BUN 11 mg/dL (7-17); BUN/CREATININE RATIO 24 (12-20 (CALC)); CARBON DIOXIDE 21 mmol/l (22-30); CHLORIDE 103 mmol/l (95-108); CREATININE 0.5 mg/dL (0.5-1.0); GFR > 60 ML/MIN (>=60 (CALC)); GFR FOR AFR.AMER. > 60 ML/MIN (>=60 (CALC)); POTASSIUM 4.2 mmol/l (3.5-5.1); SGOT/AST 42 u/l (14-36); SODIUM 135 mmol/l (137-146); TOTAL PROTEIN 7.7 g/dL (6.3-8.2)
[2021-04-16 21:08] LABS: ACT PARTIAL THROMBO TIME 23.5 SECONDS (20.0-32.5); INTERNATIONAL NORMALIZED RATIO 0.9 RATIO (0.7-1.3); PROTHROMBIN TIME 9.4 SECONDS (9.0-12.5)
[2021-04-16 21:12] LABS: MYOGLOBIN 49 ng/mL (0 - 62)
[2021-04-16 22:30] VITALS: BP 127/62
== END 2021-04-16 22:47 | disposition home or self-care (01) | DRG 179 ==
LOC: ED 18:03
PROVIDERS: Family Medicine
DX: U07.1 COVID-19 (principal); F06.4 Anxiety disorder due to known physiological condition; J45.909 Unspecified asthma, uncomplicated
CPT/HCPCS: Q9967

== ENCOUNTER 2021-04-26 16:18 | Emergency (ER) | payer BC ==
[~2021-04-26] VITALS: Ht 165.1 cm; Wt 80.0 kg
[2021-04-26] MEDS ORDERED: MEDDOSEPAK PO (17:43)
[2021-04-26] MEDS ORDERED: ACETAMINOP160 MG/5 M PO (17:43)
[2021-04-26 18:57] LABS: HEMOGLOBIN 15.2 g/dl (12.0-16.0); IMMATURE GRANULOCYTES 0.5 % (0.0-5.0); MEAN CELL VOLUME 86.3 fL CALC (80.0-100.0); MEAN CORPUSCULAR HGB 28.5 pG CALC (26.0-32.0); NEUT# 6.67 thou/uL (2.00-7.15); RED BLOOD COUNT 5.33 mill/uL (4.20-5.60); RED CELL DISTRI WIDTH 11.9 % (11.5-15.5)
[2021-04-26 19:02] LABS: URINE BILIRUBIN - DIPSTICK NEGATIVE (NEGATIVE); URINE BLOOD DIPSTICK NEGATIVE (NEGATIVE); URINE COLOR YELLOW; URINE GLUCOSE - DIPSTICK NEGATIVE (NEGATIVE); URINE KETONE 15 mg/dL (NEGATIVE); URINE LEUK ESTERASE NEGATIVE (NEGATIVE); URINE PROTEIN - DIPSTICK NEGATIVE (NEG-TRACE); URINE SPECIFIC GRAVITY 1.025; URINE UROBILINOGEN - DIPSTICK 0.2 E.U./dL (0.2)
[2021-04-26 19:11] LABS: URINE NITRITE - DIPSTICK NEGATIVE (Negative)
[2021-04-26 19:16] LABS: ALBUMIN 4.1 g/dL (3.2-5.0); ALKALINE PHOSPHATASE 110 u/l (38-126); ANION GAP 16 (6-22 (CALC)); BUN 15 mg/dL (7-17); BUN/CREATININE RATIO 25 (12-20 (CALC)); CARBON DIOXIDE 20 mmol/l (22-30); CHLORIDE 103 mmol/l (95-108); CREATININE 0.6 mg/dL (0.5-1.0); GFR > 60 ML/MIN (>=60 (CALC)); GFR FOR AFR.AMER. > 60 ML/MIN (>=60 (CALC)); POTASSIUM 3.9 mmol/l (3.5-5.1); SGOT/AST 32 u/l (14-36); SODIUM 136 mmol/l (137-146); TOTAL PROTEIN 7.7 g/dL (6.3-8.2)
[2021-04-26 19:27] LABS: MYOGLOBIN 16 ng/mL (0 - 62)
[2021-04-26 22:43] VITALS: BP 122/70
== END 2021-04-26 22:44 | disposition home or self-care (01) | DRG 179 ==
LOC: ED 16:18
PROVIDERS: Emergency Medicine
DX: U07.1 COVID-19 (principal); F06.4 Anxiety disorder due to known physiological condition; R00.1 Bradycardia, unspecified; R05.9 Cough, unspecified
CPT/HCPCS: Q9967

== ENCOUNTER 2021-06-24 23:19 | Emergency (ER) | payer BC ==
[~2021-06-24] VITALS: Ht 167.6 cm; Wt 133.0 kg
[~2021-06-24 23:19] MED LIST changes: +ACETAMINOP160 MG/5 M PO
[2021-06-24] MEDS ORDERED: AMOXICILLIN500 M2 PO (23:47)
[2021-06-25 00:09] VITALS: BP 122/72
[2021-06-25 00:11] LABS: URINE BILIRUBIN - DIPSTICK NEGATIVE (NEGATIVE); URINE BLOOD DIPSTICK NEGATIVE (NEGATIVE); URINE COLOR YELLOW; URINE GLUCOSE - DIPSTICK NEGATIVE (NEGATIVE); URINE KETONE NEGATIVE (NEGATIVE); URINE LEUK ESTERASE NEGATIVE (NEGATIVE); URINE NITRITE - DIPSTICK NEGATIVE (Negative); URINE PROTEIN - DIPSTICK NEGATIVE (NEG-TRACE); URINE SPECIFIC GRAVITY >=1.030; URINE UROBILINOGEN - DIPSTICK 0.2 E.U./dL (0.2)
[2021-06-25 00:30] VITALS: BP 124/75
[2021-06-25] MEDS ORDERED: CLEOCIN300 MG PO (00:39)
[2021-06-25] MEDS ORDERED: FLONASE AL50 MCG/ACT (00:39)
[2021-06-25 00:42] VITALS: BP 124/75
== END 2021-06-25 00:48 | disposition home or self-care (01) | DRG 153 ==
LOC: ED 23:19
PROVIDERS: Emergency Medicine
DX: J01.90 Acute sinusitis, unspecified (principal); J45.909 Unspecified asthma, uncomplicated

== ENCOUNTER 2021-12-14 06:51 | Emergency (ER) | payer BC ==
[2021-12-14] VITALS (18 sets, daily range): BP systolic 97–124; BP diastolic 59–79
[~2021-12-14] VITALS: Ht 167.6 cm; Wt 131.8 kg
[~2021-12-14 06:51] MED LIST changes: +AMOXICILLIN500 M2 PO; +FLONASE AL50 MCG/ACT
[2021-12-14 08:14] LABS: HEMATOCRIT 45.5 % (37.0-47.0); HEMOGLOBIN 15.2 g/dl (12.0-16.0); IMMATURE GRANULOCYTES 0.5 % (0.0-5.0); MEAN CELL VOLUME 83.9 fL CALC (80.0-100.0); MEAN CORPUSCULAR HGB CONC 33.4 g/dL CAL (32.0-36.0); NEUT# 4.69 thou/uL (2.00-7.15); RED BLOOD COUNT 5.42 mill/uL (4.20-5.60); RED CELL DISTRI WIDTH 11.9 % (11.5-15.5)
[2021-12-14 08:16] LABS: ALBUMIN 4.4 g/dL (3.2-5.0); ALKALINE PHOSPHATASE 129 u/l (38-126); BILIRUBIN, TOTAL 1.1 mg/dL (0.0-1.4); BUN 12 mg/dL (7-17); BUN/CREATININE RATIO 24 (12-20 (CALC)); CHLORIDE 104 mmol/l (95-108); CREATININE 0.5 mg/dL (0.5-1.0); GFR FOR AFR.AMER. > 60 ML/MIN (>=60 (CALC)); GFR OTHER RACES > 60 ML/MIN (>=60 (CALC)); POTASSIUM 4.3 mmol/l (3.5-5.1); SODIUM 138 mmol/l (137-146); TOTAL PROTEIN 7.9 g/dL (6.3-8.2)
[2021-12-14 08:17] LABS: ANION GAP 13 (6-22 (CALC)); CARBON DIOXIDE 25 mmol/l (22-30); SGOT/AST 64 u/l (14-36)
== END 2021-12-14 12:30 | disposition home or self-care (01) | DRG 313 ==
LOC: ED 06:51
PROVIDERS: Emergency Medicine
DX: R07.9 Chest pain, unspecified (principal); J32.9 Chronic sinusitis, unspecified; J06.9 Acute upper respiratory infection, unspecified; R00.2 Palpitations; F06.4 Anxiety disorder due to known physiological condition; J45.909 Unspecified asthma, uncomplicated; Z20.822 Contact with and (suspected) exposure to COVID-19

== ENCOUNTER 2021-12-16 15:27 | Emergency (ER) | payer BC ==
[~2021-12-16] VITALS: Ht 167.6 cm; Wt 133.0 kg
[2021-12-16 15:45] VITALS: BP 124/79
[2021-12-16] MEDS ORDERED: DOXY-CAPS100 MG PO (15:58)
[2021-12-16 16:00] VITALS: BP 117/71
[2021-12-16 16:30] VITALS: BP 119/64
== END 2021-12-16 16:36 | disposition home or self-care (01) | DRG 153 ==
LOC: ED 15:27
DX: J06.9 Acute upper respiratory infection, unspecified (principal); E66.9 Obesity, unspecified; J45.909 Unspecified asthma, uncomplicated

== ENCOUNTER 2022-03-13 12:49 | Emergency (ER) | payer BC ==
[~2022-03-13] VITALS: Ht 167.6 cm; Wt 135.0 kg
[~2022-03-13 12:49] MED LIST changes: +DOXY-CAPS100 MG PO
[2022-03-13 12:56] VITALS: BP 142/76
[2022-03-13 13:01] VITALS: BP 122/72
[2022-03-13] MEDS ORDERED: ZYRTEC10 MG PO (13:13)
[2022-03-13 13:30] VITALS: BP 116/68
[2022-03-13 13:33] LABS: HEMATOCRIT 44.6 % (37.0-47.0); HEMOGLOBIN 15.1 g/dl (12.0-16.0); IMMATURE GRANULOCYTES 0.3 % (0.0-5.0); MEAN CELL VOLUME 84.2 fL CALC (80.0-100.0); MEAN CORPUSCULAR HGB 28.5 pG CALC (26.0-32.0); MEAN CORPUSCULAR HGB CONC 33.9 g/dL CAL (32.0-36.0); NEUT# 5.26 thou/uL (2.00-7.15); RED BLOOD COUNT 5.3 mill/uL (4.20-5.60); RED CELL DISTRI WIDTH 11.7 % (11.5-15.5)
[2022-03-13 13:50] LABS: ALBUMIN 4.3 g/dL (3.2-5.0); ALKALINE PHOSPHATASE 129 u/l (38-126); ANION GAP 15 (6-22 (CALC)); BUN 15 mg/dL (7-17); BUN/CREATININE RATIO 24 (12-20 (CALC)); CARBON DIOXIDE 25 mmol/l (22-30); CHLORIDE 100 mmol/l (95-108); CREATININE 0.6 mg/dL (0.5-1.0); GFR FOR AFR.AMER. > 60 ML/MIN (>=60 (CALC)); GFR OTHER RACES > 60 ML/MIN (>=60 (CALC)); SGOT/AST 35 u/l (14-36); SODIUM 137 mmol/l (137-146); TOTAL PROTEIN 7.6 g/dL (6.3-8.2)
[2022-03-13 14:00] VITALS: BP 116/74
[2022-03-13 14:31] VITALS: BP 128/61
[2022-03-13] MEDS ORDERED: METFORMIN500 M2 PO (14:37)
[2022-03-13 15:01] VITALS: BP 110/70
== END 2022-03-13 15:09 | disposition home or self-care (01) | DRG 639 ==
LOC: ED 12:49
PROVIDERS: Family Medicine
DX: E11.9 Type 2 diabetes mellitus without complications (principal); I10 Essential (primary) hypertension; J45.909 Unspecified asthma, uncomplicated; F41.9 Anxiety disorder, unspecified; R20.2 Paresthesia of skin

== ENCOUNTER 2022-10-08 15:07 | Emergency (ER) | payer OTHER ==
[2022-10-08] VITALS (9 sets, daily range): BP systolic 105–128; BP diastolic 57–83
[~2022-10-08] VITALS: Ht 167.6 cm; Wt 128.0 kg
[~2022-10-08 15:07] MED LIST changes: +METFORMIN500 M2 PO
[2022-10-08 16:04] LABS: BASO% 0.4 % (0-3); EOS% 1.3 % (0-8); HEMATOCRIT 44.3 % (37.0-47.0); HEMOGLOBIN 14.6 g/dl (12.0-16.0); IMMATURE GRANULOCYTES 0.3 % (0.0-5.0); LYMPH% 36.6 % (15-41); MEAN CELL VOLUME 84.2 fL CALC (80.0-100.0); MEAN CORPUSCULAR HGB 27.8 pG CALC (26.0-32.0); NEUT# 5.83 thou/uL (2.00-7.15); NEUT% 55.4 % (42-76); RED BLOOD COUNT 5.26 mill/uL (4.20-5.60); RED CELL DISTRI WIDTH 11.7 % (11.5-15.5)
[2022-10-08 16:07] LABS: URINE BILIRUBIN - DIPSTICK NEGATIVE (NEGATIVE); URINE BLOOD DIPSTICK NEGATIVE (NEGATIVE); URINE COLOR YELLOW; URINE GLUCOSE - DIPSTICK NEGATIVE (NEGATIVE); URINE KETONE NEGATIVE (NEGATIVE); URINE LEUK ESTERASE NEGATIVE (NEGATIVE); URINE PROTEIN - DIPSTICK NEGATIVE (NEG-TRACE); URINE UROBILINOGEN - DIPSTICK 0.2 E.U./dL (0.2)
[2022-10-08 16:10] LABS: URINE NITRITE - DIPSTICK NEGATIVE (Negative)
[2022-10-08 16:33] LABS: ALBUMIN 4.2 g/dL (3.2-5.0); ALKALINE PHOSPHATASE 107 u/l (38-126); ANION GAP 12 (6-22 (CALC)); BILIRUBIN, TOTAL 0.9 mg/dL (0.02-1.3); BUN 18 mg/dL (7-17); BUN/CREATININE RATIO 31 (12-20 (CALC)); CARBON DIOXIDE 26 mmol/l (22-30); CHLORIDE 104 mmol/l (95-108); CREATININE 0.6 mg/dL (0.5-1.0); GFR FOR AFR.AMER. > 60 ML/MIN (>=60 (CALC)); GFR OTHER RACES > 60 ML/MIN (>=60 (CALC)); POTASSIUM 3.8 mmol/l (3.5-5.1); SGOT/AST 21 u/l (14-36); SODIUM 138 mmol/l (137-146); TOTAL PROTEIN 7.4 g/dL (6.3-8.2)
[2022-10-08] MEDS ORDERED: FAMOTIDINE40 M1 PO (19:35)
[2022-10-08] MEDS ORDERED: REGLAN10 MG PO (19:35)
== END 2022-10-08 20:12 | disposition home or self-care (01) | DRG 866 ==
LOC: ED 15:07
PROVIDERS: Family Medicine
DX: B34.9 Viral infection, unspecified (principal); J45.909 Unspecified asthma, uncomplicated; F41.9 Anxiety disorder, unspecified

== ENCOUNTER 2023-12-14 06:13 | Emergency (ER) | payer OTHER ==
[~2023-12-14] VITALS: Ht 167.6 cm; Wt 130.4 kg
[~2023-12-14 06:13] MED LIST changes: +FAMOTIDINE40 M1 PO; +REGLAN10 MG PO
[2023-12-14] MEDS ORDERED: TRULICITY0.75 MG/0. SC (06:35)
[2023-12-14 07:02] VITALS: BP 130/85
== END 2023-12-14 07:07 | disposition home or self-care (01) | DRG 639 ==
LOC: ED 06:13
DX: E11.9 Type 2 diabetes mellitus without complications (principal); T38.3X6A Underdosing of insulin and oral hypoglycemic [antidiabetic] drugs, initial encounter; Z91.120 Patient's intentional underdosing of medication regimen due to financial hardship

== ENCOUNTER 2024-04-28 15:16 | Observation (INO) | payer OTHER ==
[~2024-04-28] VITALS: Ht 167.6 cm; Wt 132.0 kg
[~2024-04-28 15:16] MED LIST changes: +TRULICITY0.75 MG/0. SC
[2024-04-28 15:38] VITALS: BP 126/83
[2024-04-28] MEDS ORDERED: ASPIRIN 81 MG/TAB PO ONE (15:55)
[2024-04-28 16:31] LABS: BASO% 0.2 % (0-3); EOS% 1.1 % (0-8); HEMATOCRIT 44.7 % (37.0-47.0); HEMOGLOBIN 14.8 g/dl (12.0-16.0); IMMATURE GRANULOCYTES 0.4 % (0.0-5.0); LYMPH% 29.7 % (15-41); MEAN CELL VOLUME 85.1 fL CALC (80.0-100.0); MEAN CORPUSCULAR HGB 28.2 pG CALC (26.0-32.0); MEAN CORPUSCULAR HGB CONC 33.1 g/dL CAL (32.0-36.0); MONO% 7.2 % (2-13); NEUT# 8.13 thou/uL (2.00-7.15); NEUT% 61.4 % (42-76); RED BLOOD COUNT 5.25 mill/uL (4.20-5.60); RED CELL DISTRI WIDTH 11.9 % (11.5-15.5)
[2024-04-28 16:57] LABS: ALBUMIN 3.9 g/dL (3.2-5.0); ALKALINE PHOSPHATASE 109 u/l (38-126); ANION GAP 12 (6-22 (CALC)); BILIRUBIN, TOTAL 0.9 mg/dL (0.02-1.3); BUN 14 mg/dL (7-17); BUN/CREATININE RATIO 20 (12-20 (CALC)); CARBON DIOXIDE 23 mmol/l (22-30); CHLORIDE 103 mmol/l (95-108); CREATININE 0.7 mg/dL (0.5-1.0); ESTIMATED GFR 105 ML/MIN (>=90 (CALC)); LIPASE 92 u/l (23-300); POTASSIUM 3.7 mmol/l (3.5-5.1); SGOT/AST 31 u/l (14-36); SODIUM 135 mmol/l (137-146); TOTAL PROTEIN 6.9 g/dL (6.3-8.2)
[2024-04-28] MEDS ORDERED: Pantoprazole Sodium 40 MG VIAL (Protonix) IV ONE (17:05)
[2024-04-28] MEDS ORDERED: ISOVUE-300 (Iopamidol) 100 ML SDV IV ONE ×2 (17:05)
[2024-04-28] MEDS ORDERED: FAMOTIDINE 10MG/ML 2ML SDV IV ONE (17:05)
[2024-04-28 17:37] VITALS: BP 148/134
[2024-04-28 17:39] VITALS: BP 109/77
[2024-04-28] MEDS ORDERED: GLYBURIDE2.5 M1 PO ×2 (18:58→18:59)
[2024-04-28] MEDS ORDERED: PEPCID40 MG PO (19:00)
[2024-04-28] MEDS ORDERED: ACETAMINOPHEN 325 MG/TAB PO PRN (20:15)
[2024-04-28] MEDS ORDERED: MAGNESIUM HYDROXIDE 30 ML UDC PO PRN (20:15)
[2024-04-28] MEDS ORDERED: Zaleplon 5 MG/CAP PO PRN (20:15)
[2024-04-28] MEDS ORDERED: INSULIN LISPRO 100 UNITS/ML ML SC SCH (21:00)
[2024-04-28] MEDS ORDERED: ENOXAPARIN SODIUM 40 MG/0.4 ML SYR SC SCH (21:00)
[2024-04-29 04:35] VITALS: BP 112/68
[2024-04-29 06:22] LABS: CHOLESTEROL HDL RATIO 4.6 (<4.4 (CALC)); MAGNESIUM 2.3 mg/dL (1.6-2.3)
[2024-04-29] MEDS ORDERED: PROTONIX40 M2 PO (10:28)
[2024-04-29] MEDS ORDERED: METFORMIN HCL500 M1 PO (10:29)
[2024-04-29] MEDS ORDERED: ATORVASTATIN CA40 MG PO (10:29)
== END 2024-04-29 10:42 | disposition home or self-care (01) | DRG 313 ==
LOC: ED 15:16 → ED-I 17:06 → ED 20:19 → ED-I 20:20
PROVIDERS: Nurse Practitioner; ADMIT Internal Medicine; ATTEND Internal Medicine
DX: R07.89 Other chest pain (principal); R06.02 Shortness of breath; R11.0 Nausea; E11.9 Type 2 diabetes mellitus without complications; K21.9 Gastro-esophageal reflux disease without esophagitis; J45.909 Unspecified asthma, uncomplicated; E66.9 Obesity, unspecified; Z79.84 Long term (current) use of oral hypoglycemic drugs; Z90.49 Acquired absence of other specified parts of digestive tract
CPT/HCPCS: J1650; J1815; J2470; Q9967